=== PATIENT | male | born 1980 | race African-American/Black ===

== ENCOUNTER 2018-02-13 18:39 | Inpatient (IN) | payer OTHER ==
[~2018-02-13 18:39] MED LIST: ISOVUE-370 76%-LOCM 1 ML ONE; Iopamidol 370 76% 50 ML VIAL FS ONE
[2018-02-13] MEDS ORDERED: HYDROcodone/Acetaminophen 5/325 mg Tablet ONE (19:06)
[2018-02-13 19:12] LABS: Hemoglobin 12.6 g/dL (14.0-18.0); Mean Corpuscular HGB CONC 31.2 g/dL (32.0-36.0); Mean Corpuscular Hemoglobin 25.7 pg (27.0-31.0); Mean Corpuscular Volume 82.4 fL (78.0-98.0); RBC Distribution Width 13.2 % (11.5-14.5); Red Blood Cell (RBC) Count 4.91 mill/uL (4.70-6.10); White Blood Cell (WBC) Count 24.5 thou/uL (4.8-10.8)
[2018-02-13 19:19] LABS: INR-International Normal Ratio 2.8; Prothrombin Time 29.1 SEC (12.0-14.7)
[2018-02-13 19:20] LABS: PTT 42.8 SEC (22.9-36.1)
[2018-02-13 19:33] LABS: Bilirubin Moderate (Negative); Blood, Urine Negative (Negative); Clarity CLEAR (Clear); Glucose, Urine (Dipstick) Negative (Negative); Leukocyte Small (Negative); Nitrite Positive (Negative); Protein, Urine (Dipstick) 100 mg/dL (Neg-Trace); Specific Gravity, Urine 1.023 (1.002-1.036)
[2018-02-13 19:35] LABS: Bacteria/HPF None Seen HPF (None Seen); Hyaline Casts/LPF 7-10 HYALINE CAST LPF (0-3 Hyaline); Pathc Cast-AUWi Flag 1.59 (0-2.49); RBC/HPF 0-3 HPF (0-3); Squamous Epithelial 0-3 HPF (0-3)
[2018-02-13 19:38] LABS: ALT (SGPT) 42 U/L (8-55); AST (SGOT) 62 U/L (5-34); Albumin 2.8 g/dL (3.5-5.0); Alkaline Phosphatase 105 U/L (40-150); Anion Gap 14 mmol/L (10-20); BUN (Urea Nitrogen) 33 mg/dL (8.9-20.6); Calc. Creatinine Clearance 0 mL/min (70-130); Carbon Dioxide 23 mmol/L (22-29); Chloride 102 mmol/L (98-107); Estimated GFR-MDRD 49; Globulin 3.8 g/dL (2.4-3.5); Glucose 78 mg/dL (70-105); Protein, Total 6.6 g/dL (6.0-8.3); Sodium 135 mmol/L (136-145)
[2018-02-13 19:40] LABS: Band 28 % (5-11); Hypochromia SLIGHT = 6-15 cells (100X) (0-5/hpf); Lymphocytes 2 % (21-51); MDiff Complete? YES; Mean Platelet Volume 9.5 fL (7.4-10.4); Metamyelocyte 1 % (0-0); Monocytes 6 % (0-10); Neutrophil 63 % (42-75); PLT Morphology Comment Appears Decreased; Platelet Count 123 thou/uL (130-400); Poikilocytosis SLIGHT = 6-15 cells (100X) (0-5/hpf); Polychromasia SLIGHT = 2-3 cells (100X) (0-2/hpf)
[2018-02-13] MEDS ORDERED: cefTRIAXone\\ROCEPHIN 2 GM VIAL ONE (20:47)
[2018-02-13 20:49] LABS: CKMB 1.1 ng/mL (0-6.6)
[2018-02-13] MEDS ORDERED: Lorazepam 2 MG/ML VIAL ONE (22:18)
[2018-02-13] MEDS ORDERED: Fentanyl 100 MCG/2 ML VIAL ONE (22:18)
--- NOTE | 2018-02-13 22:34 | CT ---
CT ABDOMEN AND PELVIS WITH IV AND ENTERIC CONTRAST 02/13/18 PROVIDED CLINICAL HISTORY: Groin pain. FINDINGS: The visualized lung bases are free of significant opacity. The heart is markedly enlarged. There is a heterogeneous enhancement pattern of the liver typically seen in the setting of elevated r ight heart pressures. The solid abdominal organs demonstrate an otherwise unremarkable CT appearance with exception of a left renal cyst with small focus of associated mural calcium. There is a right inguinal hernia containing mildly ectatic small bowel. There is no definite evidence for an associated bowel obstruction though the neck of the inguinal hernia fairly small. There is pr ominent fluid density present within the right scrotal sac as well as involving the scrotal subcutane ous adipose layer. There is no evidence for localized inflammatory fat stranding. There is diffuse fl uid density within the subcutaneous adipose layer and within the intraperitoneal fat. No free air or significant free fluid is seen. The osseous structures demonstrate no concerning osteoblastic or osteolytic lesions. IMPRESSION: 1. Large right inguinal hernia containing mildly ectatic small bowel without evidence for result ant bowel obstruction. Given the amount of surrounding fluid density, correlation for incarceration i s recommended. 2. Other findings as above. POS: STACEY
[2018-02-13] MEDS ORDERED: Furosemide 40 MG/4 ML VIAL ONE (23:02)
[2018-02-14 01:00] LABS: CKMB 1.3 ng/mL (0-6.6)
[2018-02-14] MEDS ORDERED: Furosemide 40 MG/4 ML VIAL ONE (01:44)
[2018-02-14] MEDS ORDERED: Furosemide 40 MG/4 ML VIAL SLOW IVP SCH (01:45)
[2018-02-14] MEDS ORDERED: Ondansetron PF 4 MG/2 ML Vial IVP PRN (01:52)
[2018-02-14] MEDS ORDERED: Ondansetron ODT 4 MG TAB SL PRN (01:52)
[2018-02-14] MEDS ORDERED: Carvedilol 6.25 MG TAB PO SCH (02:00)
[2018-02-14] MEDS: Acetaminophen 325 MG TAB PO PRN ×2 (02:27→10:56)
--- NOTE | 2018-02-14 03:22 | CON ---
DATE OF CONSULTATION: 02/13/2018 CHIEF COMPLAINT: Large right inguinal hernia. HISTORY OF PRESENT ILLNESS: The patient is a 37-year-old black male. He is a prisoner, who was transferred here this evening with a complaint of right scrotal pain. He was felt to potentially have an incarcerated inguinal hernia. On my recommendation, the emergency room physician administered some sedation with Ativan and fentanyl. Unfortunately, this has rendered the patient lethargic to the point that he cannot really communicate with me. The attempted sedation was to facilitate an attempt at reduction of his hernia. He has such severe scrotal enlargement and swelling, but it is difficult if not impossible to palpate an actual hernia within his huge scrotum. It is therefore likely not practical to attempt to reduce this. The patient denies nausea or vomiting, and only endorses scrotal discomfort. He believes it has gotten larger over the past couple of days. Evaluation of this patient is complicated not only by his current sedation and his lack of ability to communicate with this, but also by lack of records. He was transferred from the custodial with an extensive medical history, but very few medical records. I know a few of his diagnoses and the medications he is on currently, but it is difficult to piece all of this together. On top of this, he appears to have extensive medical history with what appears to be severe congestive heart failure. He appears to have had a pulmonary embolism. He is potentially a former alcoholic prior to being incarcerated. He has either a pacemaker or defibrillator. He may have some degree of liver failure. PAST MEDICAL HISTORY: 1. Congestive heart failure. 2. History of pulmonary embolism, potentially in May of 2017. 3. Gout. 4. History of alcoholism. 5. Hypothyroidism. 6. Hypertension. ALLERGIES: PENICILLIN. PAST SURGICAL HISTORY: Unknown other than pacemaker placement (although I am not certain that it is not a defibrillator). MEDICATIONS: Appear to include, 1. Allopurinol. 2. Aspirin. 3. Atorvastatin. 4. Carvedilol. 5. Plavix. 6. Furosemide. 7. Lactulose. 8. Levothyroxine. 9. Lisinopril. 10. Potassium. 11. Coumadin. PERSONAL AND SOCIAL HISTORY: Unable to obtain. REVIEW OF SYSTEMS: Unremarkable. FAMILY HISTORY: Not obtainable. PHYSICAL EXAMINATION: VITAL SIGNS: He is afebrile with a pulse of 81 and blood pressure of about 100/60. GENERAL: He is a black male, who according to the emergency room physician was resting and appeared to be comfortable. He is alert and oriented x3. HEAD, EYES, EARS, NOSE, AND THROAT: Unremarkable. NECK: Supple. LUNGS: Clear to auscultation anteriorly. CARDIAC: Muffled. Diminished heart sounds, but regular rhythm. ABDOMEN: Nondistended, but somewhat protuberant. He had no tenderness to palpation. I was able to obtain appropriate exam while he was awake. Bowel sounds are present, but hypoactive. : He has a huge scrotum. This has extensive edema within it. It is difficult to palpate either testicle due to the extensive scrotal edema. EXTREMITIES: Again, he has extensive edema within his lower extremities. LABORATORY DATA: His INR is 2.8 with a PTT of 42.8 and a PT of 29. CBC reveals white blood cell count of 24.5. I unfortunately do not know what his baseline is. Hemoglobin is 12.6, platelet count is 123, and has 28% bandemia. Chemistry panel reveals elevated creatinine of 1.9. I again have no idea what his baseline is. BUN is 33, bilirubin is elevated at 5.0. Pancreatic enzymes were not checked yet. His beta natriuretic peptide is elevated over 3000. His troponin is minimally elevated at 0.04. Urinalysis reveals positive urine nitrite with a small amount of leukocyte esterase and 7-10 white blood cells with no evidence of bacteria. X-rays, CT scan revealed a large right inguinal hernia. There is no evidence of bowel distention leading into this nor is there any gastric distention. This does not appear to be an obstructive phenomenon. There is extensive anasarca noted throughout all of his soft tissues of his abdominal wall, back, legs, scrotum, etc. ASSESSMENT: The patient appears to be in severe congestive heart failure. It is difficult to discern the role that his hernias play in his acute process. I am uncertain why he has an elevated white blood cell count or an elevated bilirubin or an elevated creatinine and how any of these are related to his baseline conditions. I am uncertain about the extent of his congestive heart failure (whether he has an ejection fraction of 5% or 40%). Since his small bowel does not appear to be obstructed based on the contrast within it, then it is unlikely that this is hemodynamically compromised. However, it potentially could be, but it is difficult to discern acutely. For now, given this variety of abnormalities on presentation, I think it would serve him better to try to get his congestive heart failure under control with diuresis to reverse his anticoagulation and hopefully to get some additional records and/or knowledge regarding his baseline condition before proceeding to surgery. Given the extent of bowel within his hernia, I believe that this right inguinal hernia should be repaired during this admission. Job ID: [id number]
[2018-02-14] MEDS ORDERED: Naloxone HCl 0.4 mg/ml Vial IV SCH (04:30)
--- NOTE | 2018-02-14 04:52 | PDOC.EVN ---
Event Note - Event Note Event Note: [facility] given his evidence of decompensated CHF and his cardiomyopathy. Once there his BP dropped into the 70's systolic. He had some pain meds earlier. Narcan was ordered. Assessed patient and he was still sleepy but easily awakens and has normal mentation. Does not feel any different. After Narcan, BP up to the 80's and MAP 60. He has not voided a great deal in spite of the IV Lasix orders. Don't think he is too dry. Concerned about sepsis. Had ordered Levaquin, but that is just now getting started. Changed the CXR to stat since it will likely not get done soon otherwise. Also asked for bladder scanning. Asked the nurse to call me if the BP does not maintain a MAP of 60 or higher. Patient now reports that he was on hemodialysis last year, but his renal function improved to the point he could go off of it.
[2018-02-14] MEDS ORDERED: Sodium Chloride 0.9% 500 ML IVPB SCH (05:30)
[2018-02-14 05:57] LABS: INR-International Normal Ratio 2.5; Prothrombin Time 27.4 SEC (12.0-14.7)
[2018-02-14 05:59] LABS: Lactic Acid 1.7 mmol/L (0.5-2.2)
[2018-02-14 06:03] LABS: Anion Gap 14 mmol/L (10-20); BUN (Urea Nitrogen) 35 mg/dL (8.9-20.6); Calc. Creatinine Clearance 72 mL/min (70-130); Carbon Dioxide 21 mmol/L (22-29); Chloride 103 mmol/L (98-107); Estimated GFR-MDRD 46; Glucose 76 mg/dL (70-105); Potassium 3.7 mmol/L (3.5-5.1); Sodium 134 mmol/L (136-145)
--- NOTE | 2018-02-14 06:08 | HP ---
CHIEF COMPLAINT: Enlarging hernia. HISTORY OF PRESENT ILLNESS: The patient is a 37-year-old male [facility] inmate, who has a history of prior myocardial infarctions resulting in significant ischemic cardiomyopathy and congestive heart failure requiring a defibrillator placement in 2014. The patient reports that he has had right inguinal hernia since 2016. However, the last couple days, it has substantially increased in size, become significantly more painful and started impacting his ability to empty his bladder and void his bowel. He stated he would start a bowel movement and have to stop and try to empty his bladder, then go back to bowel movement back to empty his bladder. He felt like he might have been developing some fever this morning as well. The patient subsequently presented for evaluation of this. However, in the process , he has also not received any of his usual daily medications. The patient has been experiencing some increasing shortness of breath. He was evaluated in the emergency department after a CT scan confirmed large right inguinal hernia with concern for incarceration. Dr. Tesfaye saw the patient, however, the patient is on warfarin presumably for his heart situation, but it is not exactly clear why he ordered a couple units of FFP. The patient is being admitted to the medical service given his underlying cardiac comorbidities. The patient did receive a dose of Lasix in the emergency department. REVIEW OF SYSTEMS: The patient denies any chest pains or palpitations. He does have the above-mentioned shortness of breath with no cough and feels like he may have some subjective fevers. He has polydipsia. All other systems were reviewed, pertinent positives and negatives were mentioned in the history of present illness. PAST MEDICAL HISTORY: Notable for the above-mentioned history of myocardial infarction with resultant ischemic cardiomyopathy and congestive heart failure. He has hyperlipidemia, gout, hypothyroidism, hypertension. PAST SURGICAL HISTORY: Defibrillator placement. FAMILY HISTORY: Both parents had congestive heart failure. SOCIAL HISTORY: The patient has a history of tobacco abuse, but none now. He has a history of severe alcohol abuse, none now. History of occasional marijuana use, none now. The patient is single. He is full code. His sister, Johnna Solis, would be his surrogate decision maker should that become necessary. ALLERGIES: PENICILLIN. CURRENT MEDICATIONS: 1. Allopurinol 300 mg daily. 2. Aspirin 81 mg daily. 3. Atorvastatin 20 mg q.p.m. 4. Coreg 12.5 mg b.i.d. 5. Plavix 75 mg daily. 6. Lasix 40 mg two q.a.m., one q.p.m. 7. Lactulose 30 mL p.o. daily. 8. Levothyroxine 25 mcg daily. 9. Lisinopril 2.5 mg daily. 10. Potassium 10 mEq p.o. daily. 11. Warfarin 7.5 mg Saturday, Saturday, Saturday and 2.5 mg q.p.m. PHYSICAL EXAMINATION: VITAL SIGNS: BP 118/74, pulse 80, respirations 18, and 98% on room air. GENERAL APPEARANCE: At the time my evaluation, the patient is awake, slightly somnolent. He is tachypneic, but not specifically in any distress. He is not able to speak in full sentences. HEENT: PERRL. No OP lesions. Dry oral mucosa. NECK: Supple and symmetric without lymphadenopathy, JVD, or carotid bruits. HEART: Regular. He has a 2/6 murmur at the apex area. LUNGS: Have scattered fine rales throughout, but fair air exchange. ABDOMEN: Soft, nondistended. Positive bowel sounds. Very minimal tenderness to palpation in the left lower quadrant. EXTREMITIES: Have 2 to 3+ pitting edema of both lower extremities to the level of the knee. : Reveals extremely enlarged scrotum, which is very tender to palpation with some scrotal wall edema. PSYCH: Normal affect and behavior. NEUROLOGIC: The patient has spontaneous movement of his extremities without evidence of focal deficits. LABORATORY DATA: White count 24.5, hemoglobin 12.6, platelets 123, 28% bands, 2 % lymphocytes. INR is 2.8, PTT 42.8. Sodium 135, potassium 4.0, chloride 102, CO2 of 23, BUN 33, creatinine is 1.9, total bilirubin 5.0, AST 62, ALT 42, troponin 0.044, BNP 3033.9, albumin 2.8, lactic acid 1.7. Urinalysis; trace protein, trace ketones, positive nitrites, positive bilirubin, small leukocyte esterase, 7-[address] abdomen and pelvis shows large right inguinal hernia containing mildly ectatic small bowel without evidence for resultant bowel obstruction. However, given the amount of surrounding fluid density, correlation for incarceration was recommended. IMPRESSION AND PLAN: 1. Incarcerated right inguinal hernia. The patient has been evaluated by Surgery and the plan is to perform surgery tomorrow if the patient can be stabilized and his anticoagulation reversed. 2. Congestive heart failure. The patient has a history of severe cardiomyopathy , secondary to ischemia. His ejection fraction is not known and can be assessed if opportunity presents itself prior to surgical intervention, however, presumably is severe. The patient is on aspirin, Plavix, and warfarin. He appears to not have substantial edema on his exam. We will obtain a chest x-ray. Unfortunately, the patient has not received his medications throughout the day of the . We will give him IV Lasix 40 mg x1 now. We will also order his Coreg now. He will need to stay on the beta blockers perioperatively as much as we can make that happen. 3. History of coronary artery disease. We will go and give him an aspirin now I beileve we can hold the Plavix perioperatively. 4. Renal. The patient has significant elevation of his BUN and creatinine. I have no idea what his baseline numbers are, certainly may be secondary to poor perfusion from congestive heart failure. 5. Leukocytosis with left shift. I am going to go and cover him with some antibiotics given that he has also felt some subjective fever. The incarcerated hernia would be the primary source of concern here. 6. Hypertension, need to resume the patient's home medications. It is not clear what time this surgery will happen. Therefore, we will hold off and see if we can get surgery done early and resume his medicines postoperatively, but will give a dose of the Coreg tonight. 7. Hypothyroidism. Very small dose of thyroid medication can be resumed once reasonably appropriate. Job ID: [id number] MTDD
[2018-02-14 06:11] LABS: Band 38 % (5-11); Hemoglobin 11.5 g/dL (14.0-18.0); Lymphocytes 1 % (21-51); MDiff Complete? YES; Mean Corpuscular HGB CONC 31.5 g/dL (32.0-36.0); Mean Corpuscular Hemoglobin 26.1 pg (27.0-31.0); Metamyelocyte 2 % (0-0); Monocytes 2 % (0-10); Neutrophil 57 % (42-75); PLT Morphology Comment Appears Decreased; Platelet Count 106 thou/uL (130-400); RBC Distribution Width 13.2 % (11.5-14.5); Red Blood Cell (RBC) Count 4.41 mill/uL (4.70-6.10); White Blood Cell (WBC) Count 21.9 thou/uL (4.8-10.8)
[2018-02-14] MEDS ORDERED: ADMIXTURE FEE IV SCH (08:15)
[2018-02-14] MEDS ORDERED: Phytonadione 10 MG/ML AMP SLOW IVP SCH ×2 (08:15)
[2018-02-14] MEDS ORDERED: HUMAN PROTHROMBIN COMPLX IV SCH (08:15)
--- NOTE | 2018-02-14 08:44 | RAD ---
RADIOGRAPH CHEST 1 VIEW: Date: 02/14/18 Time: 0505 hours HISTORY: 37-year-old male with congestive heart failure. COMPARISON: None available. FINDINGS: Cardiomegaly. Single lead left subclavian AICD. No pneumothorax. Retrocardiac portion of left lower l obe obscured by the cardiomegaly. Prominent interstitial markings. IMPRESSION: 1. Cardiomegaly. 2. Automatic implantable cardioverter-defibrillator. BAO [] POS: STACEY
[2018-02-14 10:13] LABS: ALT (SGPT) 37 U/L (8-55); AST (SGOT) 56 U/L (5-34); Albumin 2.6 g/dL (3.5-5.0); Alkaline Phosphatase 86 U/L (40-150); Bilirubin, Direct 3.7 mg/dL (0.1-0.3); Bilirubin, Total 6.2 mg/dL (0.2-1.2); Protein, Total 5.7 g/dL (6.0-8.3)
--- NOTE | 2018-02-14 10:21 | PDOC.EVN ---
Event Note - Event Note Event Note: Decompensated heart failure with incarcerated hernia and leukocytosis. Lactic acid wnl, change abx to Vanc and Zosyn. Transfer to ICU for persisting hypotension. DW Dr. Marroquin. Will DW Dr. Krishnan to start pressors and diuresis and optimize patient for surgery. ADDED Vancomycin to Levaquin and will trend WBC. Lactic acid wnl. RR, HR is wnl. Patient in the past was on dialysis and off of it now with recovery of renal function. Cr here is 1.4. will continue to trend creatinine. Also requested metal handcuff restrains to be removed as we need patient to be free of obstructions for various treatments. DR. Umu Latham Hospitalist
--- NOTE | 2018-02-14 10:38 | PRG ---
DATE OF SERVICE: 02/14/2018 SUBJECTIVE: Mr. Solis is on the stroke unit this morning. He was admitted to the hospitalist service overnight. He presented to the emergency room last night with a large scrotal hernia with discomfort. He had been transferred from the skilled nursing with poor medical records and medical history. He clearly had severe congestive heart failure with anasarca. He also had hyperbilirubinemia of unknown etiology (probably related to his heart failure). He was also fully anticoagulated on Coumadin. He was admitted to the floor and apparently not being given any IV fluid. He was hypotensive overnight with systolic pressures ranging from 64 up to 87. I believe he was given some fluid boluses in regard to this. He is currently in the process of being transferred to a higher level of care. Cardiology consultation has been requested. An echocardiogram has been obtained. The patient tells me he believes he has an ejection fraction around 18%. The patient yesterday tolerated oral contrast for CT scan and noted that he had a loose bowel movement sometime in the early hours of this morning, probably related to this contrast scan. Followup abdominal x-ray has been ordered to make sure that there is no obstructive process, which there did not appear to be last night. Additionally, the patient was fully anticoagulated. He was initially treated with 2 units of FFP, but was subsequently being given a reversal dose of Kcentra this morning. The patient is alert, pleasant, and oriented. He is fully cooperative. He tells me he does have some scrotal pain especially with manipulation and initially told me he had abdominal pain, but with examination, he realized he did not have any significant abdominal discomfort. He is thirsty and somewhat hungry. OBJECTIVE: VITAL SIGNS: Today, temperature is 98.3, pulse is 76, and blood pressure is about 80/40 currently. HEAD, EYES, EARS, NOSE, AND THROAT: Unremarkable. NECK: Supple. LUNGS: Clear to auscultation anteriorly. CARDIAC: Regular rate and rhythm. ABDOMEN: Nontender, nondistended. Bowel sounds are hypoactive. EXTREMITIES: Revealed persistent changes consistent with anasarca. LABORATORY DATA: His INR this morning is 2.5 after 2 units of FFP. His CBC reveals hemoglobin has dropped from 12.6 to 11.5 and his white blood cell count has dropped from 24.5 down to 21.9. His platelet count is low at 106 and he has 38% bandemia. His chemistry reveals that his CO2 has dropped from 23 to 21, but his lactate remains stable at 1.7. His creatinine level has gone up slightly from 1.9 to 2.0 (but again we do not know what his baseline creatinine level is). Followup liver function tests were not obtained. ASSESSMENT: The patient has known history of severe congestive heart failure. He has marked anasarca, indicating that this is poorly controlled currently. He has a large hernia down the scrotum, but this does not appear to be an obstructed phenomenon. I suspect this is a large chronic hernia. I am not certain why he has the discomfort. I am also not certain why he has a bandemia. I suspect that his pain and these changes will mandate a repair of this hernia sooner rather than later (probably later today). For now, I think that he still require stabilization given his hypotension. Cardiology evaluation is pending and he is going to be moved to a higher level of care. Consideration is being given to starting pressors to accommodate his hypotension and possible still intravascular hypovolemia. I will discuss him with my associate, Dr. Nuñez, who will be assuming his care this morning. Job ID: [id number]
[2018-02-14] MEDS: Vancomycin HCl 1.5 GM in Sodium Chloride 0.9% 250 ML 300 ML IVPB SCH ×2 (10:57→21:02)
--- NOTE | 2018-02-14 12:08 | RAD ---
ABDOMEN 1 VIEW: Date: 02/14/18 HISTORY: Follow-up. Evaluate for small bowel obstruction. COMPARISON: CT prior day. FINDINGS: There does appear to be ingested oral contrast within the left hemicolon. There are no dilated or air -filled loops of large or small bowel. IMPRESSION: Contrast seen within the left hemicolon, for which there is not likely a high grade small bowel obstr uction. POS: [facility]
--- NOTE | 2018-02-14 12:31 | CON ---
DATE OF CONSULTATION: HISTORY OF PRESENT ILLNESS: He is a 37-year-old inmate from [place]. He was brought to the hospital with right groin pain and swelling. He was found to have incarcerated hernia. Additionally, he has underlying congestive heart failure issues. He became hypotensive this morning, he was brought to the ICU. He has already been seen by General Surgery, contemplating surgery once he stabilizes. Additionally, he has cardiac issues. He is due to see Cardiology. Pulmonary Critical Care has seen the patient while in the ICU. In the ICU, he now has a blood pressure of 96/72, pulse 77, saturations 100%, respirations 24. He appears to be in no acute distress. PAST MEDICAL HISTORY: Congestive heart failure, hypothyroidism, gout, previous pacemaker defibrillator, renal failure. MEDICATIONS: From home includes Coumadin 2 mg, lactulose, potassium, lisinopril 2.5, Synthroid 25, Lasix, Plavix, Coreg 12.5 at rest and 20, aspirin 81, allopurinol. He has diagnoses from the [facility] system includes hypothyroidism, hypertension, alcohol abuse, mental issues, CHF, gout, cardiac arrhythmias, pacemaker, tobacco and alcohol as noted in the chart. REVIEW OF SYSTEMS: Unremarkable. PHYSICAL EXAMINATION: GENERAL: He is awake, alert, responsive. VITAL SIGNS: As noted once again, his oxygen saturation is 100% on 2 L, pulse is 77, blood pressure is 96/73, respirations are 18. CHEST: Decreased breath sounds. No wheezing. CARDIAC: Normal S1 and S2. No gallops. ABDOMEN: No mass. LABORATORY STUDIES: White count 21,000, H and H 11 and 36, platelet count 106. Creatinine is 2.0, BUN is 35, INR is 2.5, total bilirubin is 6.2. IMPRESSION: 1. Incarcerated right inguinal hernia. 2. Hypertension. 3. Renal failure. 4. Probably hepatitis. 5. Hypothyroidism. 6. Congestive heart failure. PLAN: The patient appears to be relatively stable. Await input from Surgery. Blood pressure continues to drop. We will need to start him on pressors and central venous access. Pulmonary Critical Care will follow while in the ICU. TIME SPENT: This is a consultation note, 70 minutes, 50% direct patient care. Job ID: [id number]
[2018-02-14 17:09] LABS: INR-International Normal Ratio 2.3
[2018-02-14] MEDS: Morphine 4 MG/ML VIAL SLOW IVP PRN (20:29)
--- NOTE | 2018-02-14 21:00 | CON ---
DATE OF CONSULTATION: HISTORY OF PRESENT ILLNESS: Sadiq Solis is a 37-year-old black male [place] [facility] inmate, who has a history of prior myocardial infarctions. He states he has had several infarctions and it sounds as if he has had a cardiac catheterization in the past. However, no PTCA or stent placement was performed. He has a single-chamber ICD that was placed in November 2014. He has never had any discharges from his defibrillator. He has had a right inguinal hernia since 2016. This has started to cause him more pain in the area. He was brought to the emergency room. Abdomen and pelvis CT revealed a large right inguinal hernia containing ectatic small bowel without evidence of obstruction. It was felt that this may be incarcerated. Consideration is given to operative repair later today. Mr. Solis denies any recent chest discomfort. He does complain of dyspnea on exertion and peripheral edema. PAST MEDICAL HISTORY: 1. Myocardial infarction. 2. Ischemic cardiomyopathy. 3. Congestive heart failure. 4. Hypertension. 5. Hyperlipidemia. 6. Gout. 7. Hypothyroidism. PAST SURGICAL HISTORY: Single-chamber ICD placement. MEDICATIONS: 1. Allopurinol 300 daily. 2. Aspirin 81 daily. 3. Plavix 75 mg daily. 4. Atorvastatin 20 at bedtime. 5. Carvedilol 12.5 b.i.d. 6. Furosemide 40 mg two q. a.m. and one q. p.m. 7. Lactulose 20 mg daily. 8. Levothyroxine 25 mcg daily. 9. Lisinopril 2.5 daily. 10. KCl 10 mEq daily. 11. Warfarin 7.5 mg on Saturday, Saturday, and Saturday; two tablets on the other days. ALLERGIES: PENICILLIN. SOCIAL HISTORY: Smoked a pack per day, but stopped two years ago. He drank in the past. PAST FAMILY HISTORY: Positive for congestive heart failure, but it does not sound as if he has had significant coronary artery disease. REVIEW OF SYSTEMS: A 12-point review of systems is otherwise unremarkable. PHYSICAL EXAMINATION: VITAL SIGNS: Blood pressure 79/58, pulse of 76, sinus rhythm on the monitor. HEENT: PERRL. NECK: Supple. CHEST: Clear. CARDIAC: S1 and S2 are normal without any S3, S4, or murmurs. ABDOMEN: Normal bowel sounds. EXTREMITIES: Revealed 1 to 2+ pretibial edema. NEUROLOGIC: Grossly intact. SKIN: Warm and dry. LABORATORY DATA: EKG reveals normal sinus rhythm with possible left atrial enlargement, low voltage in the limb leads and nonspecific T-wave changes. White count 21,900, hemoglobin 11.5, hematocrit 36.6, and platelets 106,000. INR 2.8 on admission, 2.5 this morning. He also has received fresh-frozen plasma. Sodium 134, potassium 3.7, chloride 103, carbon dioxide 21, BUN 35, and creatinine 2.01. Troponin I is 0.044. BNP 3033.9. DIAGNOSTIC DATA: Abdominal CT results as noted above. Chest x-ray reveals cardiomegaly with single-chamber ICD. Echocardiogram revealed mild left ventricular enlargement, severe left ventricular dysfunction with ejection fraction of 10% to 15%, moderate right ventricular enlargement, mild left atrial and right atrial enlargement, moderate mitral regurgitation, [id number] tricuspid regurgitation, and mild pulmonic regurgitation. IMPRESSION: 1. Incarcerated right inguinal hernia. 2. Ischemic cardiomyopathy with ejection fraction of 10% to 15%. He has being given fresh-frozen plasma. 3. Hypotension probably due to ischemic bowel with also an elevated white count. 4. Chronic kidney disease. 5. Anticoagulated. 6. Hypertension. 7. Hypercholesterolemia. 8. Hypothyroidism. PLAN: His medications at the present time are being held due to his hypotension. He may need to be started on dopamine for pressure support. Certainly, he is [id number] cardiac risk for , heart failure, or myocardial infarction. However, with incarcerated inguinal hernia, this needs to be repaired. We will follow the patient with you. Job ID: [id number] [facility]
--- NOTE | 2018-02-15 01:47 | PRG ---
DATE OF SERVICE: 02/15/2018 SUBJECTIVE: Sadiq Solis is doing well. His blood pressure stabilized. Dr. Strange has seen and echocardiogram reveals a 10% to 15% cardiac ejection fraction. He is considered at high surgical risks. The patient was on Coumadin on admission and was given Kcentra. The patient states he has had minimal pain and he is hungry. He has not had any nausea or vomiting. On admission, CAT scan of pelvis revealing right inguinal hernia into his scrotum. There was no bowel dilatation. The patient's liver function tests were elevated. He has ischemic cardiomyopathy, this is probably due to hepatic congestion. His BNP is markedly elevated. The patient feels better at this time. His abdomen is soft, nontender, and nondistended. He is hungry, he wants something to drink. We will initiate full liquids tonight. This hernia is probably chronic and he does not need surgical intervention. Surgical intervention carries with a very high risk. The patient states he would like to have his hernia fixed and undertake the surgery even though it would be a threat to his life. Currently, I do not think this is emergently indicated and we will recheck his laboratories tomorrow, following him clinically, initiate a diet and slowly advance, and he probably be transferred back to snf, consider repair of this hernia in the future later time. Job ID: [id number]
[2018-02-15] MEDS: Levothyroxine Sodium 25 MCG TAB PO SCH (05:19)
[2018-02-15] MEDS: Morphine 4 MG/ML VIAL SLOW IVP PRN ×3 (05:19→22:03)
[2018-02-15 05:43] LABS: Prothrombin Time 22.7 SEC (12.0-14.7)
[2018-02-15 05:57] LABS: ALT (SGPT) 31 U/L (8-55); AST (SGOT) 42 U/L (5-34); Albumin 2.9 g/dL (3.5-5.0); Alkaline Phosphatase 92 U/L (40-150); Anion Gap 16 mmol/L (10-20); BUN (Urea Nitrogen) 45 mg/dL (8.9-20.6); Bilirubin, Total 10.6 mg/dL (0.2-1.2); Calc. Creatinine Clearance 71 mL/min (70-130); Calcium 8.6 mg/dL (7.8-10.44); Carbon Dioxide 22 mmol/L (22-29); Chloride 100 mmol/L (98-107); Estimated GFR-MDRD 45; Globulin 3.9 g/dL (2.4-3.5); Glucose 116 mg/dL (70-105); Potassium 3.9 mmol/L (3.5-5.1); Protein, Total 6.8 g/dL (6.0-8.3); Sodium 134 mmol/L (136-145)
[2018-02-15 06:18] LABS: HBCM Index 0.09 S/CO (0-0.79); HBSAg Index 0.23 S/CO (0-0.99); Hep A IgM AB Non-Reactive (NonReactive); Hep A IgM S/CO 0.11 S/CO (0-0.79); Hep B Surf Ag Non-Reactive S/CO (NonReactive); Hep C IgG Ab Non-Reactive (NonReactive); Hep C Index 0.12 S/CO (0-0.79); Hepatitis B Core IgM Abs Non-Reactive (NonReactive)
[2018-02-15 06:49] LABS: Band 40 % (5-11); Eosinophils 1 % (0-10); Hemoglobin 11.6 g/dL (14.0-18.0); Lymphocytes 1 % (21-51); MDiff Complete? YES; Mean Corpuscular HGB CONC 31.5 g/dL (32.0-36.0); Mean Corpuscular Hemoglobin 26.3 pg (27.0-31.0); Mean Corpuscular Volume 83.5 fL (78.0-98.0); Mean Platelet Volume 10.5 fL (7.4-10.4); Monocytes 3 % (0-10); Neutrophil 55 % (42-75); PLT Morphology Comment Appears Decreased; Platelet Count 112 thou/uL (130-400); RBC Distribution Width 13.3 % (11.5-14.5); Red Blood Cell (RBC) Count 4.42 mill/uL (4.70-6.10); White Blood Cell (WBC) Count 20.6 thou/uL (4.8-10.8)
[2018-02-15] MEDS: Carvedilol 25 MG TAB PO SCH ×2 (07:15→17:03)
[2018-02-15] MEDS: Polyethylene Glycol 3350 17 GM Packet PO SCH (08:32)
[2018-02-15] MEDS: Clopidogrel Bisulfate 75 MG TAB PO SCH (08:32)
[2018-02-15] MEDS: Aspirin 81 mg Enteric Coated Tablet PO SCH (08:32)
[2018-02-15] MEDS: Vancomycin HCl 1.5 GM in Sodium Chloride 0.9% 250 ML 300 ML IVPB SCH ×2 (09:27→21:57)
[2018-02-15] MEDS: Furosemide 20 MG TAB PO SCH ×2 (09:27→14:10)
--- NOTE | 2018-02-15 10:30 | PRG ---
DATE OF SERVICE: 02/15/2018 OBJECTIVE: VITAL SIGNS: This morning, his blood pressure is improved 122/80, respirations 25, sats are 93%, afebrile, and pulse 86. GENERAL: He denies any pain or shortness of breath. CHEST: Decreased breath sounds. No wheezing. CARDIAC: Normal S1 and S2. No gallops. ABDOMEN: No masses. LABORATORY DATA: Creatinine is 2.0. His white count 20,000, hemoglobin and hematocrit 11 and 36, and platelet count 112. IMPRESSION: 1. Status post hypertension. 2. Incarcerated right inguinal hernia appears to be chronic. As per the Surgery, I am told no surgical intervention is planned at this stage. 3. Abnormal liver profile. 4. Cardiomyopathy, left pleural effusion. PLAN: Pulmonary morgan, at this stage, he can be transferred out of the ICU to a monitored bed. His ejection fraction is only 15%. Continue supportive care, PT. DISPOSITION: As per Surgery. Job ID: [id number]
--- NOTE | 2018-02-15 11:44 | PDOC.PN ---
- Subjective Encounter Start Date: 02/15/18 Encounter Start Time: 11:41 Patient seen and examined, no new issues or complaints, all questions answered. - Objective Resuscitation Status - Order Detail: 02/14/18 01:43 Resuscitation Status Routine Resuscitation Status: FULL: Full Resuscitation Vital Signs & Weight: Vital Signs (12 hours) Temp Pulse Ox 02/15/18 07:17 96 02/15/18 07:00 98.4 F 02/15/18 04:00 98.4 F 02/15/18 00:00 98.3 F Weight Weight 223 lb 4 oz Most Recent Monitor Data Heart Rate from ECG 93 NIBP 101/69 NIBP BP-Mean 79 Respiration from ECG 21 SpO2 90 I&O: 02/14/18 02/15/18 02/16/18 06:59 06:59 06:59 Intake Total 1400 240 Output Total 1575 200 Balance -175 40 Result Diagrams: 02/15/18 05:06 02/15/18 05:06 Phys Exam - Physical Examination Constitutional: NAD HEENT: PERRLA, moist MMs, sclera anicteric Neck: no nodes, no JVD, supple Respiratory: no wheezing, no rales, no rhonchi Cardiovascular: RRR, no rub 2/6 LUCILA Gastrointestinal: soft, non-tender, no distention Musculoskeletal: pulses present, edema present (1+) Neurological: non-focal, normal sensation Dx/Plan (1) Inguinal hernia Code(s): K40.90 - UNIL INGUINAL HERNIA, W/O OBST OR GANGR, NOT SPCF RECUR Status: Acute (2) Sepsis Code(s): A41.9 - SEPSIS, UNSPECIFIED ORGANISM Status: Acute (3) Systolic congestive heart failure Code(s): I50.20 - UNSPECIFIED SYSTOLIC (CONGESTIVE) HEART FAILURE Status: Acute - Plan * cont current plan with diuretics * cont abx * trial of diet to be started, surgery following, per patient he was evaluated by [facility] on 02/06/2018 to have this hernia repaired, he states he was told he would have a date scheduled for surgery but was never actually told when it would be * at this point in time will monitor patient in IMCU for now, if doing well will likely transition to the floor in AM * DC plans in 24-48hrs if no plans for surgery * case and plan d/w patient at length, he understood and agreed with this plan.
--- NOTE | 2018-02-15 19:18 | PRG ---
DATE OF SERVICE: 02/15/2018 Mr. Solis is feeling okay today. He is tolerating his diet and not having any nausea or vomiting. He is having bowel movements and passing gas. He does continue to complain of pain in his right groin due to his large hernia. His abdomen is somewhat scaphoid and he has a large amount of intestine in his right inguinal hernia. There is a large amount of edema in the scrotum as well, I have asked the nurse to elevate this. Due to severe heart failure, I do not think he is an operative candidate. This would be a large operation and he would be at risk for abdominal compartment syndrome. He might even require release of components to allow return of the bowel to the abdominal cavity. He has seen a surgeon in [facility] for this problem and was going to undergo repair if his outside plant field engineer felt that he was okay to proceed with this. His outside plant field engineer did give approval for the surgery, but the patient's severe heart failure had not really been addressed. I recommended that when he returns to his surgeon in [facility] that he inform them of his admission and the diagnosis of severe heart failure and have our records sent to that facility. If his heart failure improves, he may become an operative candidate, but currently we should just manage the swelling and edema and try to find him an appropriate scrotal support. Job ID: [id number] MTDD
[2018-02-15] MEDS ORDERED: Furosemide 40 MG TAB PO SCH (21:00)
[2018-02-15] MEDS: Atorvastatin Calcium 20 MG TAB PO SCH (21:06)
[2018-02-15 21:30] LABS: Vancomycin, Trough 37.6 ug/mL
[2018-02-16 05:30] LABS: INR-International Normal Ratio 1.8; Prothrombin Time 20.7 SEC (12.0-14.7)
[2018-02-16] MEDS: Levothyroxine Sodium 25 MCG TAB PO SCH (05:42)
[2018-02-16 05:53] LABS: Anion Gap 13 mmol/L (10-20); BUN (Urea Nitrogen) 55 mg/dL (8.9-20.6); Calc. Creatinine Clearance 72 mL/min (70-130); Calcium 8.6 mg/dL (7.8-10.44); Carbon Dioxide 23 mmol/L (22-29); Cardiac Risk 3.3 (Less than 4.5); Chloride 101 mmol/L (98-107); Cholesterol 40 mg/dl (< 200 Desired); Estimated GFR-MDRD 45; Glucose 116 mg/dL (70-105); HDL Cholesterol 12 mg/dL (>60 Neg Risk); LDL Cholesterol, Calculated 16 mg/dL; Potassium 3.5 mmol/L (3.5-5.1); Sodium 133 mmol/L (136-145); Triglycerides 62 mg/dL (Less than 150)
[2018-02-16] MEDS: Morphine 4 MG/ML VIAL SLOW IVP PRN ×3 (06:25→20:59)
[2018-02-16] MEDS: Furosemide 20 MG TAB PO SCH ×2 (08:40→13:08)
[2018-02-16] MEDS: Clopidogrel Bisulfate 75 MG TAB PO SCH (08:40)
[2018-02-16] MEDS: Aspirin 81 mg Enteric Coated Tablet PO SCH (08:40)
[2018-02-16] MEDS: Carvedilol 25 MG TAB PO SCH ×2 (08:40→16:15)
[2018-02-16] MEDS: Polyethylene Glycol 3350 17 GM Packet PO SCH (08:43)
[2018-02-16 12:05] LABS: Creatinine, Urine 90.48 mg/dL (63-166)
--- NOTE | 2018-02-16 12:09 | PRG ---
DATE OF SERVICE: 02/16/2018 SUBJECTIVE: This morning, he is awake, alert, and responsive. He is eating lunch without any problems. OBJECTIVE: VITAL SIGNS: Saturations are 99% on 2 L, respiratory rate 18, temperature 98, pulse 86, and blood pressure 117/66. CHEST: Decreased breath sounds. No wheezing. CARDIAC: Normal S1 and S2. No gallops. ABDOMEN: No masses. LABORATORY DATA: His TSH is borderline 4.9, and creatinine is 2. LABORATORY DATA: Urine is growing enterococcus faecalis sensitive to pretty much most of the antibiotics. IMPRESSION: 1. Incarcerated hernia. I am told Surgery is not going to do any surgery on him. 2. Hypertension, resolved. 3. Renal failure. PLAN: From the Pulmonary standpoint, if no surgery is contemplated, he can probably go back to routine system. Pulmonary/Critical Care will follow at a distance. Call if needed. Job ID: [id number]
--- NOTE | 2018-02-16 12:50 | PDOC.PN ---
- Subjective Encounter Start Date: 02/16/18 Encounter Start Time: 12:48 Patient seen and examined, no new issues or complaints, all questions answered. - Objective Resuscitation Status - Order Detail: 02/14/18 01:43 Resuscitation Status Routine Resuscitation Status: FULL: Full Resuscitation Vital Signs & Weight: Vital Signs (12 hours) Temp Pulse Resp BP Pulse Ox 02/16/18 12:40 98.2 F 78 18 113/56 L 98 02/16/18 07:42 98 F 86 18 117/66 99 02/16/18 03:52 98.2 F 85 20 96/60 100 Weight Weight 229 lb 1 oz Most Recent Monitor Data Heart Rate from ECG 87 NIBP 132/75 NIBP BP-Mean 94 Respiration from ECG 23 SpO2 90 I&O: 02/15/18 02/16/18 02/17/18 06:59 06:59 06:59 Intake Total 1400 790 Output Total 1575 1550 Balance -175 -760 Result Diagrams: 02/15/18 05:06 02/16/18 05:12 Phys Exam - Physical Examination Constitutional: NAD HEENT: PERRLA, moist MMs, sclera anicteric Neck: no nodes, no JVD, supple Respiratory: no wheezing, no rales, no rhonchi Cardiovascular: RRR, no significant murmur, no rub Gastrointestinal: soft, non-tender, no distention, positive bowel sounds inguinal hernia with enlarged scrotum Musculoskeletal: pulses present, edema present (1+) Dx/Plan (1) Inguinal hernia Code(s): K40.90 - UNIL INGUINAL HERNIA, W/O OBST OR GANGR, NOT SPCF RECUR Status: Acute (2) Sepsis Code(s): A41.9 - SEPSIS, UNSPECIFIED ORGANISM Status: Acute (3) Systolic congestive heart failure Code(s): I50.20 - UNSPECIFIED SYSTOLIC (CONGESTIVE) HEART FAILURE Status: Acute - Plan * no plans for surgery this admissino * vanc level at 37 with rising Cr level, renal consulted * will DC vanc for now, labs in AM * DC plans once renal function is improving and Cr trending down * will need to FU with [facility] hematology to obtain clearance for surgery then with [facility] for surgical intervention * case and plan d/w patient at [facility], he understood and agreed with this plan.
--- NOTE | 2018-02-16 14:25 | ULT ---
BILATERAL RENAL ULTRASOUND: Date: 02/16/18 HISTORY: Acute renal failure. FINDINGS: The right kidney measures 10.5 cm in length and the left kidney measures 10.1 cm in length. No hydron ephrosis is seen on this side. There is a 1.0 cm echogenic focus suspicious for mass in the superior pole of the left kidney. The ur inary bladder is unremarkable. IMPRESSION: Probable 1.0 cm echogenic mass in the superior pole of the left kidney. The possibility of angiomyoli katlyn should be considered. Further evaluation with CT scan (with and without IV contrast) would be he lpful. POS: STACEY
[2018-02-16] MEDS: Atorvastatin Calcium 20 MG TAB PO SCH (21:02)
--- NOTE | 2018-02-16 22:17 | CON ---
DATE OF CONSULTATION: TYPE OF CONSULTATION: Nephrology. REASON FOR CONSULTATION: Elevated creatinine. HISTORY OF PRESENT ILLNESS: This 37-year-old gentleman with severe congestive heart failure and a history of being on hemodialysis, presented to the hospital with severe shortness of breath. The patient was noted to have a creatinine of 2. The patient at this time denies any nausea, vomiting, or chest pain. The patient does have bilateral edema. PAST MEDICAL HISTORY: Myocardial infarction, congestive heart failure with EF of 10%, gout, hypothyroidism, history of ICD placement. MEDICATIONS: Home medication list reviewed. Hospital medication list reviewed. ALLERGIES: REVIEWED. REVIEW OF SYSTEMS: Fifteen-point review of systems was performed and negative except for positives noted above. NECK: No swelling or lumps. NOSE: No epistaxis or discharge. EYES: No diplopia or pain. MUSCULOSKELETAL: No joint pain. NEUROPSYCHIATRIC SYSTEMS: No suicidal ideation. No ideation. SKIN: Denies any rash or ulcer. CONSTITUTIONAL: No fever or chills. PHYSICAL EXAMINATION: CONSTITUTIONAL: The patient is awake, alert. VITAL SIGNS: , breathing 16, and blood pressure was 117/66. GENERAL APPEARANCE AND MENTAL STATUS: Fair. HEAD/NECK: Normocephalic. Atraumatic. EYES: EOMI. No deformity. EARS: Clear. No ulcers. NOSE: Intact. No lesions. MOUTH: Clear. No discharge. THROAT: Clear. No exudate. LUNGS: Clear. No crackles. CARDIAC: S1, S2. No rub. ABDOMEN: Benign. Bowel sounds positive. GENITALIA/RECTUM: Squires absent. BACK/EXTREMITIES: Edema 0+. NEUROLOGICAL: Alert and motor intact. LABORATORY DATA: Showing hemoglobin 11.6. Creatinine is 2.0. ASSESSMENT: 1. Chronic kidney disease, stage 3, stable. 2. Hypertension, stable. 3. Anemia, stable. 4. Edema. Continue Lasix at high doses and low-salt diet. Job ID: [id number]
[2018-02-17] MEDS: Morphine 4 MG/ML VIAL SLOW IVP PRN (04:49)
[2018-02-17 05:35] LABS: INR-International Normal Ratio 1.7; Prothrombin Time 20.1 SEC (12.0-14.7)
[2018-02-17 05:47] LABS: Anion Gap 15 mmol/L (10-20); BUN (Urea Nitrogen) 58 mg/dL (8.9-20.6); Calc. Creatinine Clearance 70 mL/min (70-130); Calcium 8.6 mg/dL (7.8-10.44); Carbon Dioxide 20 mmol/L (22-29); Chloride 98 mmol/L (98-107); Estimated GFR-MDRD 40; Glucose 103 mg/dL (70-105); Potassium 4.1 mmol/L (3.5-5.1); Sodium 129 mmol/L (136-145)
[2018-02-17] MEDS: Levothyroxine Sodium 25 MCG TAB PO SCH (05:58)
[2018-02-17] MEDS: Aspirin 81 mg Enteric Coated Tablet PO SCH (09:49)
[2018-02-17] MEDS: Clopidogrel Bisulfate 75 MG TAB PO SCH (09:49)
[2018-02-17] MEDS: Carvedilol 25 MG TAB PO SCH ×2 (09:49→17:07)
[2018-02-17] MEDS: Furosemide 20 MG TAB PO SCH ×2 (09:50→14:33)
[2018-02-17] MEDS: Polyethylene Glycol 3350 17 GM Packet PO SCH ×2 (10:13→20:43)
[2018-02-17] MEDS ORDERED: Metolazone 2.5 MG TAB PO SCH (11:30)
--- NOTE | 2018-02-17 12:06 | PRG ---
DATE OF SERVICE: 02/17/2018 SUBJECTIVE: This is a 37-year-old gentleman, being seen for acute kidney injury as well as congestive heart failure. The patient does complain of generalized swelling. Denies any chest pain. OBJECTIVE: See above. Awake, alert, in no acute distress. VITAL SIGNS: Afebrile; pulse 69; breathing is 16; blood pressure 109/74. GENERAL APPEARANCE AND MENTAL STATUS: Fair. HEAD/NECK: Normocephalic. Atraumatic. EYES: EOMI. No deformity. EARS: Clear. No ulcers. NOSE: Intact. No lesions. MOUTH: Clear. No discharge. THROAT: Clear. No exudate. LUNGS: Clear. No crackles. CARDIAC: S1, S2. No rub. ABDOMEN: Benign. Bowel sounds positive. GENITALIA/RECTUM: Squires absent. BACK/EXTREMITIES: Edema 4+. NEUROLOGICAL: Alert and motor intact. SKIN: LYMPHATICS: LABORATORY DATA: Hemoglobin 11.6. Creatinine 2.0. ASSESSMENT: 1. Acute kidney injury with chronic kidney disease due to cardiorenal syndrome. We would recommend Zaroxolyn. 2. Hypothyroidism, on Synthroid. 3. Edema due to severe cardiomyopathy. 4. Anemia, stable. 5. Medications based on GFR are appropriate. 6. Overall prognosis is poor. I would recommend Palliative Care consultation. Job ID: [id number]
--- NOTE | 2018-02-17 14:16 | PDOC.PN ---
- Subjective Encounter Start Date: 02/17/18 Encounter Start Time: 12:15 Still feels pressure on his chest. Generally edematous. - Objective Resuscitation Status - Order Detail: 02/14/18 01:43 Resuscitation Status Routine Resuscitation Status: FULL: Full Resuscitation Vital Signs & Weight: Vital Signs (12 hours) Temp Pulse Resp BP Pulse Ox 02/17/18 11:27 98 F 66 16 88/54 L 96 02/17/18 07:56 98.2 F 69 18 90/60 97 02/17/18 03:53 97.8 F 104 H 18 109/74 95 02/17/18 02:45 64 97/63 Weight Weight 239 lb 12.8 oz Most Recent Monitor Data Heart Rate from ECG 87 NIBP 132/75 NIBP BP-Mean 94 Respiration from ECG 23 SpO2 90 I&O: 02/16/18 02/17/18 02/18/18 06:59 06:59 06:59 Intake Total 790 800 Output Total 1550 850 Balance -760 -50 Result Diagrams: 02/15/18 05:06 02/17/18 05:20 Phys Exam - Physical Examination Constitutional: NAD Lying supine in bed. Slightly somnolent. Appropriate Respiratory: no wheezing, no rales, no rhonchi, clear to auscultation bilateral Diminished in bases. Cardiovascular: RRR, no significant murmur, no rub Gastrointestinal: soft, non-tender, no distention, positive bowel sounds Diffuse edema. Psychiatric: normal affect, A&O x 3 Dx/Plan (1) Systolic congestive heart failure Code(s): I50.20 - UNSPECIFIED SYSTOLIC (CONGESTIVE) HEART FAILURE Status: Acute Comment: EF 10-15%. (2) Acute on chronic kidney failure Code(s): N17.9 - ACUTE KIDNEY FAILURE, UNSPECIFIED; N18.9 - CHRONIC KIDNEY DISEASE, UNSPECIFIED Status: Acute Comment: Unclear what his baseline renal function is. Probably ATN due to hypotension. (3) Inguinal hernia Code(s): K40.90 - UNIL INGUINAL HERNIA, W/O OBST OR GANGR, NOT SPCF RECUR Status: Acute (4) Sepsis Code(s): A41.9 - SEPSIS, UNSPECIFIED ORGANISM Status: Acute - Plan * Patient has severe cardiomyopathy. Has huge inquinal hernia and dropped his blood pressure soon after admission. Consider sepsis give the leukocytosis. Creatinine has continued to climb. Required some fluid resuscitation for BP and now volume overloaded. Cannot diurese given his recurrent low BP now. Not putting out much urine on his own. Still symptomatic with the volume overload. * Discussed with patient. We do not have good treatment options. He is a high surgical risk given his cardiac, renal and volume situations. He is not a good dialysis candidate and we cannot aggressively diurese him. * Options include Palliative Care at an infirmary setting or trying to get him to [facility] for any other possible treatment options. Discussed with [facility] Managed Care. There is a waiting list for [facility]. We decided to wait til the morning and reassess. If he can be adequately stable, he may be able to go to an infirmary and consider outpatient follow up at [facility]. If not, consider transfer.
--- NOTE | 2018-02-17 16:16 | PRG ---
DATE OF SERVICE: SUBJECTIVE: Mr. Solis is feeling okay today. He has not been eating much. He denies any nausea or abdominal pain, just says that sometimes it takes him a long time to eats. He is passing gas. Vital signs have been okay. He is retaining a lot of fluid. His legs are still very swollen as is his scrotum. He has anasarca of the soft tissues of his abdomen and arms as well. He looks icteric and his urine output has been very dark. His nurse states that he has had very little urine output and I asked her to do a bladder scan. Renal and liver labs are worse, probably due to heart failure. ASSESSMENT: Patient with severe heart failure and long-standing incarcerated hernia with possible loss of domain. He is not a surgical candidate at this time. I am going to sign off for now. Please call me if he develops any acute surgical issues. However, he will be extremely high risk for not surviving surgery. Job ID: [id number] MTDD
[2018-02-17] MEDS: Atorvastatin Calcium 20 MG TAB PO SCH (20:42)
[2018-02-18] MEDS: Levothyroxine Sodium 25 MCG TAB PO SCH (04:27)
[2018-02-18 06:44] LABS: BUN (Urea Nitrogen) 71 mg/dL (8.9-20.6); Calc. Creatinine Clearance 63 mL/min (70-130); Calcium 8.8 mg/dL (7.8-10.44); Carbon Dioxide 15 mmol/L (22-29); Chloride 99 mmol/L (98-107); Estimated GFR-MDRD 36; Glucose 112 mg/dL (70-105); Potassium 5.2 mmol/L (3.5-5.1); Sodium 129 mmol/L (136-145)
[2018-02-18 06:47] LABS: Anion Gap 20 mmol/L (10-20)
[2018-02-18 06:59] LABS: INR-International Normal Ratio 1.7; Prothrombin Time 20.4 SEC (12.0-14.7)
[2018-02-18 08:04] LABS: Hemoglobin 11.5 g/dL (14.0-18.0); Mean Corpuscular HGB CONC 31.6 g/dL (32.0-36.0); Mean Corpuscular Hemoglobin 25.9 pg (27.0-31.0); Mean Corpuscular Volume 82.2 fL (78.0-98.0); Mean Platelet Volume 11.5 fL (7.4-10.4); Platelet Count 121 thou/uL (130-400); RBC Distribution Width 13.5 % (11.5-14.5); Red Blood Cell (RBC) Count 4.44 mill/uL (4.70-6.10); White Blood Cell (WBC) Count 10.4 thou/uL (4.8-10.8)
[2018-02-18] MEDS ORDERED: Furosemide 40 MG/4 ML VIAL SLOW IVP SCH ×2 (08:15→18:00)
[2018-02-18 08:17] LABS: Anion Gap 17 mmol/L (10-20); BUN (Urea Nitrogen) 69 mg/dL (8.9-20.6); Calc. Creatinine Clearance 62 mL/min (70-130); Calcium 8.6 mg/dL (7.8-10.44); Carbon Dioxide 20 mmol/L (22-29); Chloride 96 mmol/L (98-107); Estimated GFR-MDRD 35; Glucose 109 mg/dL (70-105); Potassium 4.4 mmol/L (3.5-5.1); Sodium 129 mmol/L (136-145)
[2018-02-18 09:33] LABS: Band 19 % (5-11); Lymphocytes 11 % (21-51); Monocytes 6 % (0-10); Neutrophil 64 % (42-75); Nucleated RBC 1 % (0)
[2018-02-18 09:34] LABS: MDiff Complete? YES
[2018-02-18] MEDS: Carvedilol 25 MG TAB PO SCH (10:25)
[2018-02-18] MEDS: Clopidogrel Bisulfate 75 MG TAB PO SCH (10:26)
[2018-02-18] MEDS: Aspirin 81 mg Enteric Coated Tablet PO SCH (10:26)
[2018-02-18] MEDS ORDERED: Carvedilol 6.25 MG TAB PO SCH (10:45)
[2018-02-18] MEDS ORDERED: Carvedilol 25 MG TAB PO SCH ×2 (10:45→17:00)
[2018-02-18] MEDS ORDERED: Digoxin 0.5 MG/2 ML AMP SLOW IVP SCH ×3 (10:45→13:15)
--- NOTE | 2018-02-18 11:50 | PRG ---
DATE OF SERVICE: 02/18/2018 SUBJECTIVE: A 37-year-old gentleman being seen for acute kidney injury. The patient denies any nausea, vomiting, or chest pain. OBJECTIVE: CONSTITUTIONAL: The patient is awake and alert. VITAL SIGNS: Afebrile, pulse 68, breathing 16, blood pressure 94/56. GENERAL APPEARANCE AND MENTAL STATUS: Fair. HEAD/NECK: Normocephalic. Atraumatic. EYES: EOMI. No deformity. EARS: Clear. No ulcers. NOSE: Intact. No lesions. MOUTH: Clear. No discharge. THROAT: Clear. No exudate. LUNGS: Clear. No crackles. CARDIAC: S1, S2. No rub. ABDOMEN: Benign. Bowel sounds positive. GENITALIA/RECTUM: Squires absent. BACK/EXTREMITIES: Edema 4+. NEUROLOGICAL: Alert and motor intact. LABORATORY DATA: Creatinine 2.5. ASSESSMENT: 1. Chronic kidney disease stage 3 with acute kidney injury, stable. 2. Hypertension, stable. 3. Hyperkalemia, stable. 4. Medications based on GFR are appropriate. Job ID: [id number]
--- NOTE | 2018-02-18 12:13 | PDOC.PN ---
- Subjective Encounter Start Date: 02/18/18 Encounter Start Time: 09:50 Still has episodes of SOB and chest tightness. - Objective Resuscitation Status - Order Detail: 02/14/18 01:43 Resuscitation Status Routine Resuscitation Status: FULL: Full Resuscitation Vital Signs & Weight: Vital Signs (12 hours) Temp Pulse Resp BP BP Pulse Ox 02/18/18 11:05 92/54 L 02/18/18 10:56 74 02/18/18 07:50 97.9 F 66 20 94/56 L 96 02/18/18 06:01 97.5 F L 67 18 92/58 L 100 02/18/18 01:43 90/60 Weight Weight 240 lb 11.2 oz Most Recent Monitor Data Heart Rate from ECG 87 NIBP 132/75 NIBP BP-Mean 94 Respiration from ECG 23 SpO2 90 I&O: 02/17/18 02/18/18 02/19/18 06:59 06:59 06:59 Intake Total 800 1230 Output Total 850 800 Balance -50 430 Result Diagrams: 02/18/18 06:12 02/18/18 06:12 Phys Exam - Physical Examination Constitutional: NAD Generally sleepy. Easily awakens. Respiratory: no wheezing, no rales, no rhonchi Diminished at bases. Cardiovascular: RRR, no significant murmur, no rub Gastrointestinal: soft, non-tender Slightly distended. 3+ edema - generalized Neurological: non-focal Psychiatric: normal affect, A&O x 3 Dx/Plan (1) Systolic congestive heart failure Code(s): I50.20 - UNSPECIFIED SYSTOLIC (CONGESTIVE) HEART FAILURE Status: Acute Comment: EF 10-15%. (2) Acute on chronic kidney failure Code(s): N17.9 - ACUTE KIDNEY FAILURE, UNSPECIFIED; N18.9 - CHRONIC KIDNEY DISEASE, UNSPECIFIED Status: Acute Comment: Unclear what his baseline renal function is. Probably ATN due to hypotension. (3) Inguinal hernia Code(s): K40.90 - UNIL INGUINAL HERNIA, W/O OBST OR GANGR, NOT SPCF RECUR Status: Acute (4) Sepsis Code(s): A41.9 - SEPSIS, UNSPECIFIED ORGANISM Status: Acute - Plan * Chronic, severe cardiomyopathy. Has been stable. Developed large inguinal hernia and dropped his blood pressure (? sepsis). Subsequent renal failure likely due to ATN. Decreased UOP and increasing creat. Not responding well to diuretics. Substantial edema and weight gain. * Not a dialysis candidate due to severe cardiomyopathy and failure. * Very high risk surgical candidate. * Discussed with Cardiology and Nephrology. Prognosis is extremely poor. * BP is not great, but I will try to be more aggressive with diuresis and fluid restrict. If he does not respond to the diuretics, he will indeed have a very poor prognosis.
[2018-02-18] MEDS: Furosemide 40 MG/4 ML VIAL SLOW IVP SCH (14:10)
[2018-02-18] MEDS: Metolazone 2.5 MG TAB PO SCH (14:11)
[2018-02-18] MEDS: Carvedilol 6.25 MG TAB PO SCH (17:37)
[2018-02-18] MEDS: Polyethylene Glycol 3350 17 GM Packet PO SCH (20:52)
[2018-02-18] MEDS: Atorvastatin Calcium 20 MG TAB PO SCH (20:57)
--- NOTE | 2018-02-18 22:14 | CON ---
DATE OF CONSULTATION: 02/18/2018 REASON FOR CONSULTATION: Possible Squires catheter placement. HISTORY: Mr. Solis is a 37-year-old gentleman who is currently incarcerated, with severe congestive heart failure. He has a longstanding right inguinal hernia. He was brought to the emergency room several days ago for complaints of pain and swelling of the inguinal hernia along with swelling throughout his body. He is in anasarca at this time. He does have a history of difficult Squires catheter placement in the past. I believe this is mainly a result of significant edema of the foreskin preventing adequate visualization of the glans penis. He states that he is having quite difficult time voiding earlier today but now this has improved significantly. He asked to not place a Squires catheter because of the significant improvement in his voiding pattern. His typical complaint is that of the feeling the need to void and very little coming out. He did have a bladder scan for evaluation (he was not a postvoid). There was less than 150 mL seen in his bladder. He denies any dysuria. PAST MEDICAL HISTORY: 1. Congestive heart failure. 2. Pulmonary embolism. 3. Gout. 4. History of alcoholism. 5. Hypothyroidism. 6. Hypertension. 7. Anasarca. ALLERGIES: PENICILLIN. PAST SURGICAL HISTORY: Pacemaker. CURRENT MEDICATIONS: Allopurinol, aspirin, carvedilol, Plavix, Lasix, lactulose, levothyroxine, lisinopril, potassium, and Coumadin. SOCIAL HISTORY: He is incarcerated at this time. Does have a history of alcoholism in the past. REVIEW OF SYSTEMS: RESPIRATORY: Shortness of breath with any exertion. CARDIOVASCULAR: Seems to have rather severe congestive heart failure, although the records are not really clear. GASTROINTESTINAL: Denies chronic constipation or diarrhea. GENITOURINARY: Please see history of present illness. PHYSICAL EXAMINATION: GENERAL: He is awake and alert. He is in no distress at this time. VITAL SIGNS: Most recent vital signs, temperature 97.5, blood pressure 97/63, pulse 71, and O2 saturation 98% on 2 L nasal cannula. HEENT: Normocephalic, atraumatic. NECK: Supple without masses. CHEST: No wheezing noticed. CARDIOVASCULAR: Regular rate and rhythm. ABDOMEN: Soft. He has anasarca particularly from the waist down. Marked enlargement of the scrotum particularly on the right side without any erythema or tenderness. He has significant penile edema preventing visualization of the glans penis. I am unable to retract the foreskin down to demonstrate the glans penis. EXTREMITIES: Lower extremities, severe edema. IMPRESSION: Anasarca with congestive heart failure. He is on diuretics and now that he seems to be responding. His urinary pattern is improving. He has requested that not to place a Squires catheter and because his residual has not been demonstrated to be elevated, I have agreed to avoid catheter placement at this time. RECOMMENDATION: Continue diuresis, Squires catheter if he develops retention. Job ID: [id number]
[2018-02-19] MEDS: Morphine 4 MG/ML VIAL SLOW IVP PRN ×3 (03:11→20:04)
[2018-02-19 05:29] LABS: INR-International Normal Ratio 1.7; Prothrombin Time 20.5 SEC (12.0-14.7)
[2018-02-19 05:42] LABS: Anion Gap 13 mmol/L (10-20); BUN (Urea Nitrogen) 69 mg/dL (8.9-20.6); Calc. Creatinine Clearance 70 mL/min (70-130); Calcium 8.3 mg/dL (7.8-10.44); Carbon Dioxide 26 mmol/L (22-29); Chloride 96 mmol/L (98-107); Estimated GFR-MDRD 41; Glucose 93 mg/dL (70-105); Potassium 3.2 mmol/L (3.5-5.1); Sodium 132 mmol/L (136-145)
[2018-02-19] MEDS: Furosemide 40 MG/4 ML VIAL SLOW IVP SCH ×2 (06:20→14:37)
[2018-02-19] MEDS: Metolazone 2.5 MG TAB PO SCH ×2 (06:21→14:37)
[2018-02-19] MEDS: Levothyroxine Sodium 25 MCG TAB PO SCH (06:24)
[2018-02-19] MEDS: Aspirin 81 mg Enteric Coated Tablet PO SCH (08:11)
[2018-02-19] MEDS: Carvedilol 6.25 MG TAB PO SCH ×2 (08:11→16:41)
[2018-02-19] MEDS: Clopidogrel Bisulfate 75 MG TAB PO SCH (08:12)
[2018-02-19] MEDS: Digoxin 0.125 MG TAB PO SCH (08:12)
[2018-02-19 08:45] LABS: Troponin I 0.014 ng/mL (< 0.028)
[2018-02-19] MEDS: DOBUTamine 500 mg/250 ml 250 ML IVPB SCH (09:50)
[2018-02-19] MEDS ORDERED: Potassium Chloride 20 MEQ TAB PO SCH (11:00)
--- NOTE | 2018-02-19 11:24 | PRG ---
DATE OF SERVICE: 02/19/2018 SUBJECTIVE: A 37-year-old gentleman, being seen for stage chronic kidney disease. The patient denies any nausea, vomiting, or chest pain. OBJECTIVE: CONSTITUTIONAL: The patient is awake and alert. VITAL SIGNS: Afebrile, pulse 75, breathing 16, blood pressure 82/54. GENERAL APPEARANCE AND MENTAL STATUS: Fair. HEAD/NECK: Normocephalic. Atraumatic. EYES: EOMI. No deformity. EARS: Clear. No ulcers. NOSE: Intact. No lesions. MOUTH: Clear. No discharge. THROAT: Clear. No exudate. LUNGS: Clear. No crackles. CARDIAC: S1, S2. No rub. ABDOMEN: Benign. Bowel sounds positive. GENITALIA/RECTUM: Squires absent. BACK/EXTREMITIES: Edema 0+. NEUROLOGICAL: Alert and motor intact. SKIN: LYMPHATICS: LABORATORY DATA: Labs show hemoglobin 11.5. Potassium 3.2. Creatinine 2.2. ASSESSMENT AND PLAN: 1. Chronic kidney disease, stage , stable. 2. stable. 3. Hypokalemia. Recommend 40 mEq potassium. 4. Congestive heart failure. Prognosis is poor. I would recommend palliative care. Job ID: [id number]
[2018-02-19] MEDS: DOPamine 400 MG/D5W 250 ML 250 ML IVPB SCH (11:46)
[2018-02-19] MEDS ORDERED: Furosemide 40 MG/4 ML VIAL SLOW IVP SCH ×2 (12:15→19:00)
--- NOTE | 2018-02-19 13:44 | PDOC.PN ---
- Subjective Encounter Start Date: 02/19/18 Encounter Start Time: 10:00 Subjective: pt up in bed no complains of abdomen pain -: pt gets very sob on exertion. pt had chest pain this am -: pt appeared jaundice - Objective Resuscitation Status - Order Detail: 02/14/18 01:43 Resuscitation Status Routine Resuscitation Status: FULL: Full Resuscitation Vital Signs & Weight: Vital Signs (12 hours) Temp Pulse Pulse Pulse Resp BP BP 02/19/18 12:00 67 63 118/58 L 02/19/18 11:43 97.6 F 70 16 02/19/18 08:12 64 02/19/18 08:11 82/54 L 02/19/18 08:00 02/19/18 07:39 97.8 F 64 16 02/19/18 04:00 98.6 F 63 20 BP BP Pulse Ox 02/19/18 12:00 105/57 L 02/19/18 11:43 106/55 L 96 02/19/18 08:12 02/19/18 08:11 02/19/18 08:00 97 02/19/18 07:39 82/54 L 97 02/19/18 04:00 87/48 L 97 Weight Weight 232 lb 4.8 oz Most Recent Monitor Data Heart Rate from ECG 87 NIBP 132/75 NIBP BP-Mean 94 Respiration from ECG 23 SpO2 90 I&O: 02/18/18 02/19/18 02/20/18 06:59 06:59 06:59 Intake Total 1230 890 Output Total 800 3525 Balance 430 -2635 Result Diagrams: 02/18/18 06:12 02/19/18 05:11 Phys Exam - Physical Examination sclera appeared icteric Neck: no nodes, no JVD, supple, full ROM Respiratory: no wheezing, no rales, no rhonchi, wheezing present, clear to auscultation bilateral Cardiovascular: RRR, no significant murmur, no rub, gallop, irregular Gastrointestinal: soft, non-tender, no distention, positive bowel sounds Musculoskeletal: edema present to bilateral thigh area Dx/Plan (1) Acute on chronic systolic (congestive) heart failure Code(s): I50.23 - ACUTE ON CHRONIC SYSTOLIC (CONGESTIVE) HEART FAILURE Status : Acute (2) Acute on chronic kidney failure Code(s): N17.9 - ACUTE KIDNEY FAILURE, UNSPECIFIED; N18.9 - CHRONIC KIDNEY DISEASE, UNSPECIFIED Status: Acute Comment: Unclear what his baseline renal function is. Probably ATN due to hypotension. (3) Incarcerated inguinal hernia Code(s): K40.30 - UNIL INGUINAL HERNIA, W OBST, W/O GANGR, NOT SPCF RECUR Status: Acute (4) Inguinal hernia Code(s): K40.90 - UNIL INGUINAL HERNIA, W/O OBST OR GANGR, NOT SPCF RECUR Status: Acute - Plan will add lfts to am labs -: pt's bp low unable to given his diuretics. spoke with cardio -: will start him on dobutamine and dopamine for now -: continue lasix if map >65. no plans for surgery as of yet -: pt's urine cx indicated enterococcus on levaquin * . Review of Systems - Review of Systems Respiratory: Shortness of Breath Cardiovascular: chest pain Gastrointestinal: negative: Nausea, Vomiting, Abdominal Pain, Diarrhea, Constipation, Melena, Hematochezia, Other Genitourinary: negative: Dysuria, Frequency, Incontinence, Hematuria, Retention , Other - Medications/Allergies Allergies/Adverse Reactions: Allergies Allergy/AdvReac Type Severity Reaction Status Date / Time Penicillins Allergy Verified 02/14/18 02:42 Medications: Current Medications Albumin Human (Albumin 25%) 25 gm IVPB ONE ONE Stop: 02/19/18 13:36 Allopurinol (Zyloprim) 150 mg PO DAILY [facility] Aspirin (Ecotrin) 81 mg PO DAILY [facility] Last Admin: 02/19/18 08:11 Dose: 81 mg Atorvastatin Calcium (Lipitor) 20 mg PO [facility] Last Admin: 02/18/18 20:57 Dose: 20 mg Atorvastatin Calcium (Lipitor) 20 mg PO [facility] Carvedilol (Coreg) 6.25 mg PO BID-WM [facility] Last Admin: 02/19/18 08:11 Dose: Not Given Clopidogrel Bisulfate (Plavix) 75 mg PO DAILY [facility] Last Admin: 02/19/18 08:12 Dose: 75 mg Digoxin (Lanoxin) 0.125 mg PO QAM [facility] Last Admin: 02/19/18 08:12 Dose: 0.125 mg Furosemide (Lasix) 40 mg SLOW IVP 0600,1400 [facility] Last Admin: 02/19/18 06:20 Dose: Not Given Furosemide (Lasix) 40 mg SLOW IVP NOW [facility] Stop: 02/19/18 14:00 Last Admin: 02/19/18 12:45 Dose: 40 mg Levofloxacin 500 mg/ Device 100 mls @ 100 mls/hr IVPB Q24HR [facility] Last Admin: 02/19/18 03:01 Dose: 100 mls Dobutamine HCl/Dextrose (Dobutamine 500 Mg/250 Ml) 250 mls @ 15.806 mls/hr IVPB INF [facility]; Protocol Last Admin: 02/19/18 09:50 Dose: 250 mls Dopamine HCl/Dextrose (Dopamine/D5w) 250 mls @ 19.757 mls/hr IVPB INF [facility]; Protocol Last Admin: 02/19/18 11:46 Dose: 250 mls Lactulose (Lactulose) 20 gm PO HS [facility] Last Admin: 02/18/18 20:52 Dose: Not Given Levothyroxine Sodium (Synthroid) 25 mcg PO 0600 [facility] Last Admin: 02/19/18 06:24 Dose: 25 mcg Metolazone (Zaroxolyn) 2.5 mg PO 0600,1400 [facility] Last Admin: 02/19/18 06:21 Dose: Not Given Morphine Sulfate (Morphine) 4 mg SLOW IVP Q4H PRN PRN Reason: Pain Last Admin: 02/19/18 12:45 Dose: 4 mg Polyethylene Glycol (Miralax) 17 gm PO HS [facility] Last Admin: 02/18/18 20:52 Dose: Not Given Sodium Chloride (Flush - Normal Saline) 10 ml IVF Q12HR [facility] Last Admin: 02/19/18 08:12 Dose: 10 ml Sodium Chloride (Flush - Normal Saline) 10 ml IVF PRN PRN PRN Reason: Saline Flush
[2018-02-19] MEDS ORDERED: Albumin 25% 25 GM/100 ML BOT IVPB SCH (14:00)
[2018-02-19 16:03] LABS: Anion Gap 14 mmol/L (10-20); BUN (Urea Nitrogen) 59 mg/dL (8.9-20.6); Calc. Creatinine Clearance 77 mL/min (70-130); Calcium 8.9 mg/dL (7.8-10.44); Carbon Dioxide 28 mmol/L (22-29); Chloride 94 mmol/L (98-107); Estimated GFR-MDRD 47; Glucose 102 mg/dL (70-105); Potassium 3.2 mmol/L (3.5-5.1); Sodium 133 mmol/L (136-145)
[2018-02-19 16:04] LABS: ALT (SGPT) 50 U/L (8-55); AST (SGOT) 127 U/L (5-34); Albumin 2.8 g/dL (3.5-5.0); Alkaline Phosphatase 142 U/L (40-150); Bilirubin, Total 14.4 mg/dL (0.2-1.2)
[2018-02-19 16:05] LABS: Bilirubin, Direct Greater than 10.0 mg/dL (0.1-0.3)
[2018-02-19 16:16] LABS: Anisocytosis SLIGHT = 6-15 cells (100X) (0-5/hpf); Band 8 % (5-11); Hypochromia SLIGHT = 6-15 cells (100X) (0-5/hpf); Lymphocytes 8 % (21-51); MDiff Complete? YES; Mean Corpuscular HGB CONC 31.9 g/dL (32.0-36.0); Mean Corpuscular Volume 81.6 fL (78.0-98.0); Mean Platelet Volume 10.5 fL (7.4-10.4); Monocytes 4 % (0-10); Neutrophil 80 % (42-75); PLT Morphology Comment Appears Adequate; Platelet Count 156 thou/uL (130-400); Poikilocytosis SLIGHT = 6-15 cells (100X) (0-5/hpf); RBC Distribution Width 14.1 % (11.5-14.5); Red Blood Cell (RBC) Count 4.63 mill/uL (4.70-6.10); Target Cells SLIGHT = 2-5 cells (100X) (0-1/hpf); White Blood Cell (WBC) Count 12.8 thou/uL (4.8-10.8)
[2018-02-19] MEDS ORDERED: Metolazone 2.5 MG TAB PO SCH (19:00)
[2018-02-19] MEDS: Polyethylene Glycol 3350 17 GM Packet PO SCH (19:58)
[2018-02-19] MEDS ORDERED: Atorvastatin Calcium 20 MG TAB PO SCH (21:00)
[2018-02-20] MEDS: DOPamine 400 MG/D5W 250 ML 250 ML IVPB SCH ×2 (00:43→09:47)
[2018-02-20] MEDS: DOBUTamine 500 mg/250 ml 250 ML IVPB SCH ×2 (00:43→15:01)
[2018-02-20] MEDS: Polyethylene Glycol 3350 17 GM Packet PO SCH ×2 (02:54→20:54)
[2018-02-20] MEDS: Levothyroxine Sodium 25 MCG TAB PO SCH (05:08)
[2018-02-20] MEDS: Metolazone 2.5 MG TAB PO SCH ×2 (05:09→14:27)
[2018-02-20] MEDS: Furosemide 40 MG/4 ML VIAL SLOW IVP SCH ×2 (05:09→14:27)
[2018-02-20 05:37] LABS: INR-International Normal Ratio 1.5; Prothrombin Time 18.6 SEC (12.0-14.7)
[2018-02-20] MEDS: Morphine 4 MG/ML VIAL SLOW IVP PRN ×2 (05:59→11:15)
[2018-02-20 06:01] LABS: Anion Gap 14 mmol/L (10-20); BUN (Urea Nitrogen) 47 mg/dL (8.9-20.6); Calc. Creatinine Clearance 97 mL/min (70-130); Calcium 8.8 mg/dL (7.8-10.44); Carbon Dioxide 30 mmol/L (22-29); Chloride 94 mmol/L (98-107); Estimated GFR-MDRD 61; Glucose 94 mg/dL (70-105); Potassium 3.3 mmol/L (3.5-5.1); Sodium 135 mmol/L (136-145)
--- NOTE | 2018-02-20 07:48 | ULT ---
SONOGRAM RIGHT UPPER QUADRANT: Date: 02/20/18 HISTORY: Elevated bilirubin. Abdominal pain. FINDINGS: Gallbladder is incompletely distended. No stones visible. Common duct is 0.2 cm. Liver unremarkable w ithout focal mass or intrahepatic biliary dilatation. Minimal free fluid in the abdomen and right ple ural space. IMPRESSION: No evidence of gallstones or biliary obstruction. POS: [facility]
[2018-02-20] MEDS: Digoxin 0.125 MG TAB PO SCH (08:18)
[2018-02-20] MEDS: Potassium Chloride 20 MEQ TAB PO SCH ×2 (08:18→16:35)
[2018-02-20] MEDS: Aspirin 81 mg Enteric Coated Tablet PO SCH (08:19)
[2018-02-20] MEDS: Carvedilol 6.25 MG TAB PO SCH ×2 (08:19→16:36)
[2018-02-20] MEDS: Clopidogrel Bisulfate 75 MG TAB PO SCH (08:19)
[2018-02-20] MEDS: Allopurinol 300 MG TAB PO SCH (08:19)
[2018-02-20 10:26] LABS: ALT (SGPT) 43 U/L (8-55); AST (SGOT) 104 U/L (5-34); Albumin 2.4 g/dL (3.5-5.0); Alkaline Phosphatase 152 U/L (40-150); Bilirubin, Direct 8.7 mg/dL (0.1-0.3); Magnesium 1.8 mg/dL (1.6-2.6); Protein, Total 6.7 g/dL (6.0-8.3)
--- NOTE | 2018-02-20 12:08 | PRG ---
DATE OF SERVICE: 02/20/2018 SUBJECTIVE: A 37-year-old gentleman, being seen for acute kidney injury. The patient denied any nausea, vomiting, or chest pain. OBJECTIVE: CONSTITUTIONAL: The patient is awake and alert. VITAL SIGNS: Afebrile. Pulse 57, breathing 16, blood pressure 118/57. GENERAL APPEARANCE AND MENTAL STATUS: Fair. HEAD/NECK: Normocephalic. Atraumatic. EYES: EOMI. No deformity. EARS: Clear. No ulcers. NOSE: Intact. No lesions. MOUTH: Clear. No discharge. THROAT: Clear. No exudate. LUNGS: Clear. No crackles. CARDIAC: S1, S2. No rub. ABDOMEN: Benign. Bowel sounds positive. GENITALIA/RECTUM: Squires absent. BACK/EXTREMITIES: Edema 0+. NEUROLOGICAL: Alert and motor intact. LABORATORY DATA: Show hemoglobin 12. Potassium 3.6. ASSESSMENT AND RECOMMENDATION: 1. Chronic kidney disease stage 3 with acute kidney injury, stable. 2. Hypertension, stable. 3. Anemia, stable. 4. Hyperkalemia, high potassium diet. I will sign off from this patient. Please re-consult as needed. Job ID: [id number]
--- NOTE | 2018-02-20 12:54 | PDOC.PN ---
- Subjective Encounter Start Date: 02/20/18 Encounter Start Time: 10:00 Subjective: pt up in bed feels much better today - Objective Resuscitation Status - Order Detail: 02/14/18 01:43 Resuscitation Status Routine Resuscitation Status: FULL: Full Resuscitation Vital Signs & Weight: Vital Signs (12 hours) Temp Pulse Resp BP Pulse Ox 02/20/18 11:33 97.4 F L 55 L 14 100/57 L 96 02/20/18 08:18 62 02/20/18 08:00 95 02/20/18 07:34 97.7 F 62 16 110/64 95 02/20/18 04:00 98.6 F 57 L 18 118/57 L 93 L Weight Weight 217 lb 14.4 oz Most Recent Monitor Data Heart Rate from ECG 87 NIBP 132/75 NIBP BP-Mean 94 Respiration from ECG 23 SpO2 90 I&O: 02/19/18 02/20/18 02/21/18 06:59 06:59 06:59 Intake Total 890 1987.8 Output Total 8205 6745 [facility]2635 -4777.2 Result Diagrams: 02/19/18 15:35 02/20/18 04:22 Phys Exam - Physical Examination Respiratory: no wheezing, no rales, no rhonchi, wheezing present, clear to auscultation bilateral Cardiovascular: RRR, no significant murmur, no rub, gallop, irregular Gastrointestinal: soft, non-tender, no distention, positive bowel sounds Musculoskeletal: no edema, pulses present, edema present Dx/Plan (1) Acute on chronic systolic (congestive) heart failure Code(s): I50.23 - ACUTE ON CHRONIC SYSTOLIC (CONGESTIVE) HEART FAILURE Status : Acute (2) Acute on chronic kidney failure Code(s): N17.9 - ACUTE KIDNEY FAILURE, UNSPECIFIED; N18.9 - CHRONIC KIDNEY DISEASE, UNSPECIFIED Status: Acute Comment: Unclear what his baseline renal function is. Probably ATN due to hypotension. (3) Incarcerated inguinal hernia Code(s): K40.30 - UNIL INGUINAL HERNIA, W OBST, W/O GANGR, NOT SPCF RECUR Status: Acute (4) Inguinal hernia Code(s): K40.90 - UNIL INGUINAL HERNIA, W/O OBST OR GANGR, NOT SPCF RECUR Status: Acute - Plan pt is diuresing well, will contine meds for now, creatinine improving. -: RUQ ultrasound no acute danilo. will change abx to selina since levaquin -: does not have good coverage for enterococcus. -: replace electrolytes -: will give him one dose of albumin today * . Review of Systems - Review of Systems Cardiovascular: negative: chest pain, palpitations, orthopnea, paroxysmal nocturnal dyspnea, edema, light headedness, other Gastrointestinal: negative: Nausea, Vomiting, Abdominal Pain, Diarrhea, Constipation, Melena, Hematochezia, Other Genitourinary: negative: Dysuria, Frequency, Incontinence, Hematuria, Retention , Other - Medications/Allergies Allergies/Adverse Reactions: Allergies Allergy/AdvReac Type Severity Reaction Status Date / Time Penicillins Allergy Verified 02/14/18 02:42 Medications: Current Medications Albumin Human (Albumin 25%) 25 gm IVPB ONE ONE Stop: 02/20/18 12:52 Allopurinol (Zyloprim) 150 mg PO DAILY [facility] Last Admin: 02/20/18 08:19 Dose: 150 mg Aspirin (Ecotrin) 81 mg PO DAILY [facility] Last Admin: 02/20/18 08:19 Dose: 81 mg Carvedilol (Coreg) 6.25 mg PO BID-[facility] Last Admin: 02/20/18 08:19 Dose: 6.25 mg Clopidogrel Bisulfate (Plavix) 75 mg PO DAILY [facility] Last Admin: 02/20/18 08:19 Dose: 75 mg [facility]) [facility] Last Admin: 02/20/18 08:18 Dose: 0.125 mg Furosemide (Lasix) 40 mg SLOW IVP 0600,1400 [facility] Last Admin: 02/20/18 05:09 Dose: 40 mg Dobutamine HCl/Dextrose (Dobutamine 500 Mg/250 Ml) 250 mls @ 15.806 mls/hr IVPB INF [facility]; Protocol Last Admin: 02/20/18 00:43 Dose: 250 mls Dopamine HCl/Dextrose (Dopamine/D5w) 250 mls @ 19.757 mls/hr IVPB INF [facility]; Protocol Last Admin: 02/20/18 09:47 Dose: 250 mls Meropenem 1 gm/ Sodium (Chloride) 100 mls @ 200 mls/hr IVPB BID [facility] Lactulose (Lactulose) 20 gm PO [facility] Last Admin: 02/19/18 23:17 Dose: 20 gm Levothyroxine Sodium (Synthroid) 25 mcg PO 0600 [facility] Last Admin: 02/20/18 05:08 Dose: Not Given Metolazone (Zaroxolyn) 2.5 mg PO 0600,1400 [facility] Last Admin: 02/20/18 05:09 Dose: Not Given Miscellaneous Medication (Pharmacy To Dose) 1 each IVPB ONE PRN PRN Reason: Pharmacy to dose Morphine Sulfate (Morphine) 4 mg SLOW IVP Q4H PRN PRN Reason: Pain Last Admin: 02/20/18 11:15 Dose: 4 mg Polyethylene Glycol (Miralax) 17 gm PO HS [facility] Last Admin: 02/20/18 02:54 Dose: Not Given Potassium Chloride (K-Dur) 40 meq PO BID-WM [facility] Stop: 02/20/18 23:00 Last Admin: 02/20/18 08:18 Dose: 40 meq Sodium Chloride (Flush - Normal Saline) 10 ml IVF Q12HR [facility] Last Admin: 02/20/18 08:19 Dose: 10 ml Sodium Chloride (Flush - Normal Saline) 10 ml IVF PRN PRN PRN Reason: Saline Flush
[2018-02-20] MEDS ORDERED: Albumin 25% 25 GM/100 ML BOT IVPB SCH (13:00)
[2018-02-20] MEDS: MEROPENEM 1 GM/50 ML 1 GM in Premix Bag 1 BAG IVPB SCH (14:27)
[2018-02-21] MEDS: MEROPENEM 1 GM/50 ML 1 GM in Premix Bag 1 BAG IVPB SCH ×2 (01:11→14:01)
[2018-02-21] MEDS: Morphine 4 MG/ML VIAL SLOW IVP PRN (01:12)
[2018-02-21] MEDS: DOPamine 400 MG/D5W 250 ML 250 ML IVPB SCH (02:22)
[2018-02-21] MEDS: Metolazone 2.5 MG TAB PO SCH ×2 (06:07→14:01)
[2018-02-21] MEDS: Levothyroxine Sodium 25 MCG TAB PO SCH (06:07)
[2018-02-21] MEDS: Furosemide 40 MG/4 ML VIAL SLOW IVP SCH ×2 (06:07→14:00)
[2018-02-21 08:59] LABS: INR-International Normal Ratio 1.4; Prothrombin Time 17.6 SEC (12.0-14.7)
[2018-02-21 09:16] LABS: ALT (SGPT) 38 U/L (8-55); AST (SGOT) 77 U/L (5-34); Albumin 2.5 g/dL (3.5-5.0); Alkaline Phosphatase 157 U/L (40-150); Anion Gap 12 mmol/L (10-20); BUN (Urea Nitrogen) 26 mg/dL (8.9-20.6); Bilirubin, Total 10.1 mg/dL (0.2-1.2); Calc. Creatinine Clearance 115 mL/min (70-130); Calcium 9.2 mg/dL (7.8-10.44); Carbon Dioxide 37 mmol/L (22-29); Chloride 90 mmol/L (98-107); Estimated GFR-MDRD 86; Globulin 4.6 g/dL (2.4-3.5); Glucose 97 mg/dL (70-105); Potassium 3.6 mmol/L (3.5-5.1); Protein, Total 7.1 g/dL (6.0-8.3); Sodium 135 mmol/L (136-145)
[2018-02-21] MEDS: Aspirin 81 mg Enteric Coated Tablet PO SCH (09:22)
[2018-02-21] MEDS: Digoxin 0.125 MG TAB PO SCH (09:22)
[2018-02-21] MEDS: Allopurinol 300 MG TAB PO SCH (09:22)
[2018-02-21] MEDS: Clopidogrel Bisulfate 75 MG TAB PO SCH (09:22)
[2018-02-21] MEDS: Carvedilol 6.25 MG TAB PO SCH ×2 (09:22→17:33)
[2018-02-21] MEDS: DOBUTamine 500 mg/250 ml 250 ML IVPB SCH (09:25)
--- NOTE | 2018-02-21 14:31 | PDOC.PN ---
- Subjective Encounter Start Date: 02/21/18 Encounter Start Time: 10:30 Subjective: pt up in bed feels constipated - Objective Resuscitation Status - Order Detail: 02/14/18 01:43 Resuscitation Status Routine Resuscitation Status: FULL: Full Resuscitation Vital Signs & Weight: Vital Signs (12 hours) Temp Pulse Resp BP Pulse Ox 02/21/18 11:25 97.8 F 66 16 129/69 93 L 02/21/18 09:22 68 02/21/18 08:02 97.8 F 63 16 109/63 96 02/21/18 07:15 96 02/21/18 04:40 98.1 F 65 14 113/58 L 93 L Weight Weight 205 lb 11.2 oz Most Recent Monitor Data Heart Rate from ECG 87 NIBP 132/75 NIBP BP-Mean 94 Respiration from ECG 23 SpO2 90 I&O: 02/20/18 02/21/18 02/22/18 06:59 06:59 06:59 Intake Total 1987.8 1000 800 Output Total 6765 1540 2275 [facility] -4777.2 -1923 -7555 Result Diagrams: 02/19/18 15:35 02/21/18 08:36 Phys Exam - Physical Examination Respiratory: no wheezing, no rales, no rhonchi, wheezing present, clear to auscultation bilateral Cardiovascular: RRR, no significant murmur, no rub, gallop, irregular Gastrointestinal: soft, non-tender, no distention, positive bowel sounds Musculoskeletal: pulses present, edema present scrotum edema present but improved Dx/Plan (1) Acute on chronic systolic (congestive) heart failure Code(s): I50.23 - ACUTE ON CHRONIC SYSTOLIC (CONGESTIVE) HEART FAILURE Status : Acute (2) Acute on chronic kidney failure Code(s): N17.9 - ACUTE KIDNEY FAILURE, UNSPECIFIED; N18.9 - CHRONIC KIDNEY DISEASE, UNSPECIFIED Status: Acute Comment: Unclear what his baseline renal function is. Probably ATN due to hypotension. (3) Incarcerated inguinal hernia Code(s): K40.30 - UNIL INGUINAL HERNIA, W OBST, W/O GANGR, NOT SPCF RECUR Status: Acute (4) Inguinal hernia Code(s): K40.90 - UNIL INGUINAL HERNIA, W/O OBST OR GANGR, NOT SPCF RECUR Status: Acute - Plan will start to wean off dopamine and dobutamine -: will decrease his lasix to daily -: bili improving and renal improving. * . Review of Systems - Review of Systems Cardiovascular: negative: chest pain, palpitations, orthopnea, paroxysmal nocturnal dyspnea, edema, light headedness, other Gastrointestinal: negative: Nausea, Vomiting, Abdominal Pain, Diarrhea, Constipation, Melena, Hematochezia, Other Genitourinary: negative: Dysuria, Frequency, Incontinence, Hematuria, Retention , Other - Medications/Allergies Allergies/Adverse Reactions: Allergies Allergy/AdvReac Type Severity Reaction Status Date / Time Penicillins Allergy Verified 02/14/18 02:42 Medications: Current Medications Allopurinol (Zyloprim) 150 mg PO DAILY [facility] Last Admin: 02/21/18 09:22 Dose: 150 mg Aspirin (Ecotrin) 81 mg PO DAILY [facility] Last Admin: 02/21/18 09:22 Dose: 81 mg Bisacodyl (Dulcolax) 10 mg PO NOW [facility] Stop: 02/21/18 16:45 Carvedilol (Coreg) 6.25 mg PO BID-[facility] Last Admin: 02/21/18 09:22 Dose: 6.25 mg Clopidogrel Bisulfate (Plavix) 75 mg PO DAILY [facility] Last Admin: 02/21/18 09:22 Dose: 75 mg Digoxin (Lanoxin) 0.125 mg PO QAM [facility] Last Admin: 02/21/18 09:22 Dose: 0.125 mg Furosemide (Lasix) 40 mg SLOW IVP DAILY [facility] Dobutamine HCl/Dextrose (Dobutamine 500 Mg/250 Ml) 250 mls @ 15.806 mls/hr IVPB INF [facility]; Protocol Last Admin: 02/21/18 09:25 Dose: 250 mls Dopamine HCl/Dextrose (Dopamine/D5w) 250 mls @ 19.757 mls/hr IVPB INF [facility]; Protocol Last Admin: 02/21/18 02:22 Dose: 250 mls Meropenem 1 gm/ Device 50 mls @ 100 mls/hr IVPB 0200,1400 [facility] Last Admin: 02/21/18 14:01 Dose: 50 mls Lactulose (Lactulose) 20 gm PO HS [facility] Last Admin: 02/20/18 20:54 Dose: 20 gm Levothyroxine Sodium (Synthroid) 25 mcg PO 0600 [facility] Last Admin: 02/21/18 06:07 Dose: 25 mcg Miscellaneous Medication (Pharmacy To Dose) 1 each IVPB PRN PRN PRN Reason: Pharmacy to dose Morphine Sulfate (Morphine) 4 mg SLOW IVP Q4H PRN PRN Reason: Pain Last Admin: 02/21/18 01:12 Dose: 4 mg Polyethylene Glycol (Miralax) 17 gm PO HS [facility] Last Admin: 02/20/18 20:54 Dose: Not Given Sodium Chloride (Flush - Normal Saline) 10 ml IVF Q12HR [facility] Last Admin: 02/21/18 09:26 Dose: Not Given Sodium Chloride (Flush - Normal Saline) 10 ml IVF PRN PRN PRN Reason: Saline Flush
[2018-02-21] MEDS ORDERED: Bisacodyl 5 MG TAB PO SCH (14:45)
[2018-02-21] MEDS ORDERED: Albumin 25% 25 GM/100 ML BOT IVPB SCH (15:00)
--- NOTE | 2018-02-21 15:21 | PRG ---
DATE OF SERVICE: 02/21/2018 SUBJECTIVE: A 37-year-old gentleman, being seen for acute kidney injury. The patient denied any nausea, vomiting, or chest pain. OBJECTIVE: CONSTITUTIONAL: The patient is awake and alert. VITAL SIGNS: Afebrile. Pulse 96, breathing 16, blood pressure 129/69. GENERAL APPEARANCE AND MENTAL STATUS: Fair. HEAD/NECK: Normocephalic. Atraumatic. EYES: EOMI. No deformity. EARS: Clear. No ulcers. NOSE: Intact. No lesions. MOUTH: Clear. No discharge. THROAT: Clear. No exudate. LUNGS: Clear. No crackles. CARDIAC: S1, S2. No rub. ABDOMEN: Benign. Bowel sounds positive. GENITALIA/RECTUM: Squires absent. BACK/EXTREMITIES: Edema 0+. NEUROLOGICAL: Alert and motor intact. LABORATORY DATA: Labs show creatinine 1.1. ASSESSMENT AND RECOMMENDATION: 1. Chronic kidney disease stage 3, stable. 2. Hypertension, stable. 3. Acute kidney injury, resolved. 4. Cardiorenal syndrome, Cardiology. I will sign off from this patient. Please re-consult as needed. Job ID: [id number]
[2018-02-21] MEDS ORDERED: Lidocaine Patch Removal 1 EACH TOP SCH (17:00)
[2018-02-21] MEDS ORDERED: DOBUTamine 500 mg/250 ml 250 ML IVPB SCH (21:12)
[2018-02-21] MEDS ORDERED: DOPamine 400 MG/D5W 250 ML 250 ML IVPB SCH (21:13)
[2018-02-21] MEDS: Polyethylene Glycol 3350 17 GM Packet PO SCH (21:36)
[2018-02-22] MEDS: MEROPENEM 1 GM/50 ML 1 GM in Premix Bag 1 BAG IVPB SCH (02:10)
[2018-02-22 05:56] LABS: INR-International Normal Ratio 1.5; Prothrombin Time 18.2 SEC (12.0-14.7)
[2018-02-22] MEDS: Levothyroxine Sodium 25 MCG TAB PO SCH (06:00)
[2018-02-22] MEDS ORDERED: Furosemide 40 MG/4 ML VIAL SLOW IVP SCH (09:00)
[2018-02-22] MEDS: Aspirin 81 mg Enteric Coated Tablet PO SCH (09:12)
[2018-02-22] MEDS: Carvedilol 6.25 MG TAB PO SCH ×2 (09:12→17:10)
[2018-02-22] MEDS: Lidocaine 5% Patch TD SCH (09:12)
[2018-02-22] MEDS: Clopidogrel Bisulfate 75 MG TAB PO SCH (09:13)
[2018-02-22] MEDS: Allopurinol 300 MG TAB PO SCH (09:13)
[2018-02-22] MEDS: Digoxin 0.125 MG TAB PO SCH (09:13)
[2018-02-22 10:45] LABS: ALT (SGPT) 31 U/L (8-55); AST (SGOT) 68 U/L (5-34); Albumin 2.6 g/dL (3.5-5.0); Alkaline Phosphatase 148 U/L (40-150); BUN (Urea Nitrogen) 19 mg/dL (8.9-20.6); Bilirubin, Total 10.2 mg/dL (0.2-1.2); Calc. Creatinine Clearance 97 mL/min (70-130); Calcium 8.8 mg/dL (7.8-10.44); Estimated GFR-MDRD 75; Globulin 4.5 g/dL (2.4-3.5); Glucose 93 mg/dL (70-105); Protein, Total 7.1 g/dL (6.0-8.3)
[2018-02-22 10:56] LABS: Anion Gap 14 mmol/L (10-20); Carbon Dioxide 34 mmol/L (22-29); Chloride 88 mmol/L (98-107); Potassium 3.4 mmol/L (3.5-5.1); Sodium 133 mmol/L (136-145)
--- NOTE | 2018-02-22 11:23 | PDOC.CTH ---
Cardiology Progress Note - Subjective no complaints currently. Dobutamine and Dopa stopped in the last hour. Back to lower than baseline weight. No CP/SOB. - Objective Vital Signs Temp Pulse Resp BP Pulse Ox 02/22/18 08:45 97 02/22/18 08:05 98.1 F 63 16 99/54 L 97 02/22/18 04:00 97.9 F 63 14 99/56 L 95 Weight 193 lb 8 oz 02/21/18 02/22/18 02/23/18 06:59 06:59 06:59 Intake Total 1000 2316 Output Total 2920 6523 Balance -5343 -5678 - Physical Examination General/Neuro: alert & oriented x3 Neck: no JVD present Lungs: CTA Heart: RRR Abdomen: NT/ND Extremities: other: (+1 RLE edema; trace left) - Telemetry Telemetry Rhythm: SB; NSR - Labs Result Diagrams: 02/22/18 10:14 02/22/18 10:14 Troponin/CKMB CK-MB (CK-2) 1.3 ng/mL (0-6.6) 02/14/18 00:02 Troponin I 0.014 ng/mL (< 0.028) 02/19/18 05:11 - Assessment/Plan 1. Acute on chronic systolic CHF 2. incarcerated hernia - stable 3. s/p single ICD 4. History of PE 2013 Doing well from a CHF standpoint. Good diuresis. Drips stopped. Changed to po lasix. D/W Dr. Cabrera. She will resume lovenox and coumadin and prep for transfer back to [facility]. Patient still mildly hypotensive, but asymptomatic. Parameters for Coreg given to nurse. Pt seen and examined. No new changes.
[2018-02-22 12:01] LABS: #Eosinphils 0.1 thou/uL (0.0-0.7); #Lymphocytes 0.8 thou/uL (1.20-3.40); #Monocytes 0.9 thou/uL (0.11-0.59); #Neutrophils 11.8 thou/uL (1.40-6.50); %Eosinophils 0.9 % (0.0-10.0); %Lymphocytes 6.2 % (21.0-51.0); %Monocytes 6.9 % (0.0-10.0); %Neutrophils 86.1 % (42.0-75.0); Hemoglobin 12.3 g/dL (14.0-18.0); Mean Corpuscular HGB CONC 31.1 g/dL (32.0-36.0); Mean Corpuscular Hemoglobin 25.7 pg (27.0-31.0); Mean Corpuscular Volume 82.5 fL (78.0-98.0); Mean Platelet Volume 10.1 fL (7.4-10.4); Platelet Count 187 thou/uL (130-400); RBC Distribution Width 15.5 % (11.5-14.5); Red Blood Cell (RBC) Count 4.79 mill/uL (4.70-6.10); White Blood Cell (WBC) Count 13.7 thou/uL (4.8-10.8)
[2018-02-22] MEDS ORDERED: Enoxaparin Sodium 100 MG/ML SYRINGE SC SCH (12:45)
--- NOTE | 2018-02-22 12:54 | PDOC.PN ---
- Subjective Encounter Start Date: 02/22/18 Encounter Start Time: 09:00 Subjective: pt up in chair complains of pain to his right chest wall area - Objective Resuscitation Status - Order Detail: 02/14/18 01:43 Resuscitation Status Routine Resuscitation Status: FULL: Full Resuscitation Vital Signs & Weight: Vital Signs (12 hours) Temp Pulse Resp BP Pulse Ox 02/22/18 11:00 98.1 F 59 L 16 96/59 L 97 02/22/18 08:45 97 02/22/18 08:05 98.1 F 63 16 99/54 L 97 02/22/18 04:00 97.9 F 63 14 99/56 L 95 Weight Weight 193 lb 8 oz Most Recent Monitor Data Heart Rate from ECG 87 NIBP 132/75 NIBP BP-Mean 94 Respiration from ECG 23 SpO2 90 I&O: 02/21/18 02/22/18 02/23/18 06:59 06:59 06:59 Intake Total 1000 2316 Output Total 2920 6513 Balance -6685 -5748 Result Diagrams: 02/22/18 10:14 02/22/18 10:14 Phys Exam - Physical Examination Neck: no nodes, no JVD, supple, full ROM Respiratory: no wheezing, no rales, no rhonchi, wheezing present, clear to auscultation bilateral Cardiovascular: RRR, no significant murmur, no rub, gallop, irregular Gastrointestinal: soft, non-tender, no distention, positive bowel sounds Dx/Plan (1) Acute on chronic systolic (congestive) heart failure Code(s): I50.23 - ACUTE ON CHRONIC SYSTOLIC (CONGESTIVE) HEART FAILURE Status : Acute (2) Acute on chronic kidney failure Code(s): N17.9 - ACUTE KIDNEY FAILURE, UNSPECIFIED; N18.9 - CHRONIC KIDNEY DISEASE, UNSPECIFIED Status: Acute Comment: Unclear what his baseline renal function is. Probably ATN due to hypotension. (3) Incarcerated inguinal hernia Code(s): K40.30 - UNIL INGUINAL HERNIA, W OBST, W/O GANGR, NOT SPCF RECUR Status: Acute (4) Inguinal hernia Code(s): K40.90 - UNIL INGUINAL HERNIA, W/O OBST OR GANGR, NOT SPCF RECUR Status: Acute (5) Pulmonary emboli Code(s): I26.99 - OTHER PULMONARY EMBOLISM WITHOUT ACUTE COR PULMONALE Status : Acute - Plan will stop dobutamine drip, will change iv lasix to po -: pt has diuresed well. will also stop abx for now -: replace K -: will start him back on coumadin and bridge with lovonox * . Review of Systems - Review of Systems Respiratory: Pleuritic Pain Cardiovascular: negative: chest pain, palpitations, orthopnea, paroxysmal nocturnal dyspnea, edema, light headedness, other Gastrointestinal: negative: Nausea, Vomiting, Abdominal Pain, Diarrhea, Constipation, Melena, Hematochezia, Other - Medications/Allergies Allergies/Adverse Reactions: Allergies Allergy/AdvReac Type Severity Reaction Status Date / Time Penicillins Allergy Verified 02/14/18 02:42 Medications: Current Medications Albumin Human (Albumin 25%) 25 gm IVPB NOW [facility] Stop: 02/22/18 15:00 Allopurinol (Zyloprim) 150 mg PO DAILY [facility] Last Admin: 02/22/18 09:13 Dose: 150 mg Aspirin (Ecotrin) 81 mg PO DAILY [facility] Last Admin: 02/22/18 09:12 Dose: 81 mg Carvedilol (Coreg) 6.25 mg PO BID-[facility] Last Admin: 02/22/18 09:12 Dose: 6.25 mg Clopidogrel Bisulfate (Plavix) 75 mg PO DAILY [facility] Last Admin: 02/22/18 09:13 Dose: 75 mg [facility]oxin (Lan[facility]) [facility] Admin: 02/22/18 09:13 Dose: 0.125 mg Enoxaparin Sodium (Lovenox) 90 mg SC 0900,2100 [facility] Enoxaparin Sodium (Lovenox) 90 mg SC NOW [facility] Stop: 02/22/18 14:45 Furosemide (Lasix) 40 mg PO DAILY-AC [facility] Dopamine HCl/Dextrose (Dopamine/D5w) 250 mls @ 19.757 mls/hr IVPB INF [facility]; Protocol Stop: 02/22/18 18:00 Lactulose (Lactulose) 20 gm PO [facility] Last Admin: 02/21/18 21:36 Dose: Not Given Levothyroxine Sodium (Synthroid) 25 mcg PO 0600 [facility] Last Admin: 02/22/18 06:00 Dose: 25 mcg Lidocaine (Lidoderm 5% Patch) 1 patch TD DAILY [facility] Last Admin: 02/22/18 09:12 Dose: 1 patch Miscellaneous Medication (Pharmacy To Dose) 1 each IVPB PRN PRN PRN Reason: Pharmacy to dose Miscellaneous Medication (Lidocaine Patch Removal) 1 each TOP ASDIR [facility] Miscellaneous Medication (Pharmacy To Dose) 1 each PO PRN PRN PRN Reason: Pharmacy to dose Polyethylene Glycol (Miralax) 17 gm PO HS [facility] Last Admin: 02/21/18 21:36 Dose: Not Given Potassium Chloride (K-Dur) 40 meq PO BID-WM [facility] Sodium Chloride (Flush - Normal Saline) 10 ml IVF Q12HR [facility] Last Admin: 02/22/18 09:13 Dose: 10 ml Sodium Chloride (Flush - Normal Saline) 10 ml IVF PRN PRN PRN Reason: Saline Flush Warfarin Sodium (Coumadin) 5 mg PO SuTuThSa@1700 [facility] Warfarin Sodium (Coumadin) 7.5 mg PO MoWeFr@1700 [facility]
[2018-02-22] MEDS ORDERED: Potassium Chloride 20 MEQ TAB PO SCH (13:00)
[2018-02-22] MEDS ORDERED: Albumin 25% 25 GM/100 ML BOT IVPB SCH (13:00)
[2018-02-22] MEDS: Warfarin Sodium 5 MG TAB PO SCH (17:10)
[2018-02-22] MEDS: Potassium Chloride 20 MEQ TAB PO SCH (17:10)
--- NOTE | 2018-02-22 17:16 | EKG ---
Test Reason : Blood Pressure : / mmHG Vent. Rate : 084 BPM Atrial Rate : 084 BPM P-R Int : 164 ms QRS Dur : 088 ms QT Int : 396 ms P-R-T Axes : 081 067 133 degrees QTc Int : 467 ms Normal sinus rhythm Possible Left atrial enlargement Nonspecific T wave abnormality Prolonged QT Abnormal ECG Confirmed by CHRISTA FRY ([id number]), order editor JEANNETTE ANGULO ([id number]) on 02/22/2018 5:15:59 PM Referred By: Confirmed By:CHRISTA FRY
[2018-02-22] MEDS: Enoxaparin Sodium 100 MG/ML SYRINGE SC SCH (20:31)
[2018-02-22] MEDS: Polyethylene Glycol 3350 17 GM Packet PO SCH (22:52)
[2018-02-22 23:08] LABS: Hemoglobin 11.9 g/dL (14.0-18.0); Platelet Count 171 thou/uL (130-400)
[2018-02-23] MEDS: Levothyroxine Sodium 25 MCG TAB PO SCH (05:51)
[2018-02-23 06:00] LABS: INR-International Normal Ratio 1.4; Prothrombin Time 17.4 SEC (12.0-14.7)
[2018-02-23] MEDS: Potassium Chloride 20 MEQ TAB PO SCH ×2 (08:32→18:05)
[2018-02-23] MEDS: Carvedilol 6.25 MG TAB PO SCH ×2 (08:32→18:04)
[2018-02-23] MEDS: Furosemide 40 MG TAB PO SCH (08:32)
[2018-02-23] MEDS: Aspirin 81 mg Enteric Coated Tablet PO SCH (08:33)
[2018-02-23] MEDS: Digoxin 0.125 MG TAB PO SCH (08:33)
[2018-02-23] MEDS: Allopurinol 300 MG TAB PO SCH (08:33)
[2018-02-23] MEDS: Enoxaparin Sodium 100 MG/ML SYRINGE SC SCH ×2 (08:33→21:15)
[2018-02-23] MEDS: Clopidogrel Bisulfate 75 MG TAB PO SCH (08:33)
[2018-02-23] MEDS: Lidocaine 5% Patch TD SCH (08:34)
[2018-02-23] MEDS ORDERED: Lisinopril 2.5 MG TAB PO SCH ×2 (10:00→10:30)
--- NOTE | 2018-02-23 10:14 | PDOC.CTH ---
Cardiology Progress Note - Subjective No complaints today. Feeling ok. No pain. No SOB/WOODS. Good output. - Objective Vital Signs Temp Pulse Resp BP BP Pulse Ox 02/23/18 08:33 67 02/23/18 08:32 104/63 02/23/18 08:25 97.9 F 67 16 104/63 99 02/23/18 03:06 98.4 F 66 16 95/51 L 100 Weight 186 lb 6.4 oz 02/22/18 02/23/18 02/24/18 06:59 06:59 06:59 Intake Total 2316 390 240 Output Total 6566 700 Balance -9029 -310 240 - Physical Examination General/Neuro: alert & oriented x3 Neck: no JVD present Lungs: CTA Heart: RRR Abdomen: NT/ND Extremities: other: (Trace bilateral SID) - Labs Result Diagrams: 02/22/18 22:52 02/23/18 10:15 Troponin/CKMB CK-MB (CK-2) 1.3 ng/mL (0-6.6) 02/14/18 00:02 Troponin I 0.014 ng/mL (< 0.028) 02/19/18 05:11 - Assessment/Plan 1. Acute on chronic systolic CHF 2. incarcerated hernia - stable 3. s/p single ICD 4. History of PE 2014 Stable. Add lisinopril at low dosage and monitor BP. INR subtherapeutic. Continue lovenox. Discharge planning. Pt seen and examined. Pt previously on eliquis prior to incarceration and was dc and placed on coumadin for previous PE. Pt not opposed to restarting. For disposition, I would recommend transitioning to eliquis and can be managed by the intermediate system. He appears euvolemic today. Ok for dc when ok with primary team. I will sign off. Ok to dc tele
[2018-02-23 10:44] LABS: ALT (SGPT) 27 U/L (8-55); AST (SGOT) 55 U/L (5-34); Albumin 2.3 g/dL (3.5-5.0); Alkaline Phosphatase 132 U/L (40-150); Anion Gap 13 mmol/L (10-20); BUN (Urea Nitrogen) 15 mg/dL (8.9-20.6); Bilirubin, Total 7.9 mg/dL (0.2-1.2); Calc. Creatinine Clearance 126 mL/min (70-130); Calcium 8.7 mg/dL (7.8-10.44); Carbon Dioxide 33 mmol/L (22-29); Chloride 93 mmol/L (98-107); Estimated GFR-MDRD Greater than 90; Globulin 4.6 g/dL (2.4-3.5); Glucose 99 mg/dL (70-105); Potassium 3.6 mmol/L (3.5-5.1); Protein, Total 6.9 g/dL (6.0-8.3); Sodium 135 mmol/L (136-145)
--- NOTE | 2018-02-23 14:23 | PDOC.PN ---
- Subjective Encounter Start Date: 02/23/18 Encounter Start Time: 10:00 Subjective: pt up in bed no complains - Objective Resuscitation Status - Order Detail: 02/14/18 01:43 Resuscitation Status Routine Resuscitation Status: FULL: Full Resuscitation Vital Signs & Weight: Vital Signs (12 hours) Temp Pulse Resp BP BP Pulse Ox 02/23/18 12:00 65 101/61 02/23/18 11:55 98.4 F 65 16 101/61 97 02/23/18 08:33 67 02/23/18 08:32 104/63 02/23/18 08:25 97.9 F 67 16 104/63 99 02/23/18 03:06 98.4 F 66 16 95/51 L 100 Weight Weight 186 lb 6.4 oz Most Recent Monitor Data Heart Rate from ECG 87 NIBP 132/75 NIBP BP-Mean 94 Respiration from ECG 23 SpO2 90 I&O: 02/22/18 02/23/18 02/24/18 06:59 06:59 06:59 Intake Total 2314 667 480 Output Total 6521 700 Balance -4259 -310 480 Result Diagrams: 02/22/18 22:52 02/23/18 10:15 Phys Exam - Physical Examination Neck: no nodes, no JVD, supple, full ROM Respiratory: no wheezing, no rales, no rhonchi, wheezing present, clear to auscultation bilateral Cardiovascular: RRR, no significant murmur, no rub, gallop, irregular Dx/Plan (1) Acute on chronic systolic (congestive) heart failure Code(s): I50.23 - ACUTE ON CHRONIC SYSTOLIC (CONGESTIVE) HEART FAILURE Status : Acute (2) Acute on chronic kidney failure Code(s): N17.9 - ACUTE KIDNEY FAILURE, UNSPECIFIED; N18.9 - CHRONIC KIDNEY DISEASE, UNSPECIFIED Status: Acute Comment: Unclear what his baseline renal function is. Probably ATN due to hypotension. (3) Incarcerated inguinal hernia Code(s): K40.30 - UNIL INGUINAL HERNIA, W OBST, W/O GANGR, NOT SPCF RECUR Status: Acute (4) Inguinal hernia Code(s): K40.90 - UNIL INGUINAL HERNIA, W/O OBST OR GANGR, NOT SPCF RECUR Status: Acute (5) Pulmonary emboli Code(s): I26.99 - OTHER PULMONARY EMBOLISM WITHOUT ACUTE COR PULMONALE Status : Acute - Plan will conitnue lovonox and coumadin -: lasix changed to po -: pt on kali/bb -: possible discharge in am * . Review of Systems - Review of Systems Respiratory: negative: Cough, Dry, Shortness of Breath, Hemoptysis, SOB with Excertion, Pleuritic Pain, Sputum, Wheezing Cardiovascular: negative: chest pain, palpitations, orthopnea, paroxysmal nocturnal dyspnea, edema, light headedness, other Gastrointestinal: negative: Nausea, Vomiting, Abdominal Pain, Diarrhea, Constipation, Melena, Hematochezia, Other - Medications/Allergies Allergies/Adverse Reactions: Allergies Allergy/AdvReac Type Severity Reaction Status Date / Time Penicillins Allergy Verified 02/14/18 02:42 Medications: Current Medications Allopurinol (Zyloprim) 150 mg PO DAILY [facility] Last Admin: 02/23/18 08:33 Dose: 150 mg Aspirin (Ecotrin) 81 mg PO DAILY [facility] Last Admin: 02/23/18 08:33 Dose: 81 mg Carvedilol (Coreg) 6.25 mg PO BID-WM [facility] Last Admin: 02/23/18 08:32 Dose: 6.25 mg Clopidogrel Bisulfate (Plavix) 75 mg PO DAILY [facility] Last Admin: 02/23/18 08:33 Dose: 75 mg Digoxin (Lanoxin) 0.125 mg PO QAM [facility] Last Admin: 02/23/18 08:33 Dose: 0.125 mg Enoxaparin Sodium (Lovenox) 90 mg SC 0900,2100 [facility] Last Admin: 02/23/18 08:33 Dose: 90 mg Furosemide (Lasix) 40 mg PO DAILY-AC [facility] Last Admin: 02/23/18 08:32 Dose: 40 mg Lactulose (Lactulose) 20 gm PO HS [facility] Last Admin: 02/22/18 22:52 Dose: Not Given Levothyroxine Sodium (Synthroid) 25 mcg PO 0600 [facility] Last Admin: 02/23/18 05:51 Dose: 25 mcg Lidocaine (Lidoderm 5% Patch) 1 patch TD DAILY [facility] Last Admin: 02/23/18 08:34 Dose: 1 patch Lisinopril (Zestril) 2.5 mg PO DAILY [facility] Miscellaneous Medication (Pharmacy To Dose) 1 each IVPB PRN PRN PRN Reason: Pharmacy to dose Miscellaneous Medication (Lidocaine Patch Removal) 1 each TOP ASDIR [facility] Miscellaneous Medication (Pharmacy To Dose) 1 each PO PRN PRN PRN Reason: Pharmacy to dose Polyethylene Glycol (Miralax) 17 gm PO HS [facility] Last Admin: 02/22/18 22:52 Dose: Not Given Potassium Chloride (K-Dur) 40 meq PO BID-WM [facility] Last Admin: 02/23/18 08:32 Dose: 40 meq Sodium Chloride (Flush - Normal Saline) 10 ml IVF Q12HR [facility] Last Admin: 02/23/18 08:34 Dose: 10 ml Sodium Chloride (Flush - Normal Saline) 10 ml IVF PRN PRN PRN Reason: Saline Flush Warfarin Sodium (Coumadin) 5 mg PO SuTuThSa@1700 [facility] Last Admin: 02/22/18 17:10 Dose: 5 mg Warfarin Sodium (Coumadin) 7.5 mg PO MoWeFr@1700 [facility]
[2018-02-23] MEDS: Warfarin Sodium 5 MG TAB PO SCH (18:05)
[2018-02-24] MEDS: Polyethylene Glycol 3350 17 GM Packet PO SCH ×2 (00:26→20:46)
[2018-02-24] MEDS: Levothyroxine Sodium 25 MCG TAB PO SCH (05:21)
[2018-02-24 05:48] LABS: INR-International Normal Ratio 1.3; Prothrombin Time 16.2 SEC (12.0-14.7)
[2018-02-24 06:12] LABS: ALT (SGPT) 26 U/L (8-55); AST (SGOT) 51 U/L (5-34); Albumin 2.6 g/dL (3.5-5.0); Alkaline Phosphatase 141 U/L (40-150); BUN (Urea Nitrogen) 15 mg/dL (8.9-20.6); Bilirubin, Total 6.8 mg/dL (0.2-1.2); Calc. Creatinine Clearance 131 mL/min (70-130); Calcium 8.2 mg/dL (7.8-10.44); Carbon Dioxide 27 mmol/L (22-29); Chloride 98 mmol/L (98-107); Estimated GFR-MDRD Greater than 90; Globulin 4.1 g/dL (2.4-3.5); Glucose 86 mg/dL (70-105); Potassium 4.3 mmol/L (3.5-5.1); Protein, Total 6.7 g/dL (6.0-8.3); Sodium 133 mmol/L (136-145)
[2018-02-24 06:13] LABS: Anion Gap 12 mmol/L (10-20)
[2018-02-24] MEDS: Potassium Chloride 10 MEQ TAB PO SCH ×2 (08:11→16:35)
[2018-02-24] MEDS: Digoxin 0.125 MG TAB PO SCH (08:12)
[2018-02-24] MEDS: Aspirin 81 mg Enteric Coated Tablet PO SCH (08:12)
[2018-02-24] MEDS: Lisinopril 2.5 MG TAB PO SCH (08:12)
[2018-02-24] MEDS: Carvedilol 6.25 MG TAB PO SCH ×2 (08:12→16:35)
[2018-02-24] MEDS: Clopidogrel Bisulfate 75 MG TAB PO SCH (08:12)
[2018-02-24] MEDS: Allopurinol 300 MG TAB PO SCH (08:12)
[2018-02-24] MEDS: Furosemide 40 MG TAB PO SCH (08:12)
[2018-02-24] MEDS: Lidocaine 5% Patch TD SCH (08:14)
[2018-02-24] MEDS: Enoxaparin Sodium 100 MG/ML SYRINGE SC SCH ×2 (09:00→20:47)
[2018-02-24 12:09] VITALS: BMI 29.6
[2018-02-24] MEDS ORDERED: Warfarin Sodium 7.5 MG TAB PO SCH ×3 (17:00)
[2018-02-24] MEDS ORDERED: Warfarin Sodium 10 MG TAB PO SCH (17:00)
--- NOTE | 2018-02-24 20:46 | PDOC.PN ---
- Subjective Encounter Start Date: 02/24/18 Encounter Start Time: 10:15 Subjective: pt up in bed no complains - Objective Resuscitation Status - Order Detail: 02/14/18 01:43 Resuscitation Status Routine Resuscitation Status: FULL: Full Resuscitation Vital Signs & Weight: Vital Signs (12 hours) Temp Pulse Resp BP Pulse Ox 02/24/18 19:45 98.0 F 69 18 86/50 L 100 02/24/18 15:54 98.3 F 66 18 91/54 L 99 02/24/18 11:52 98.0 F 60 18 96/51 L 97 Weight Admit Weight 224 lb 3.2 oz Weight 183 lb 6.4 oz Most Recent Monitor Data Heart Rate from ECG 87 NIBP 132/75 NIBP BP-Mean 94 Respiration from ECG 23 SpO2 90 I&O: 02/23/18 02/24/18 02/25/18 06:59 06:59 06:59 Intake Total 390 1200 900 Output Total 700 1600 1000 Balance -310 -400 -100 Result Diagrams: 02/22/18 22:52 02/24/18 05:27 Phys Exam - Physical Examination Neck: no nodes, no JVD, supple, full ROM Respiratory: no wheezing, no rales, no rhonchi, wheezing present, clear to auscultation bilateral Cardiovascular: RRR, no significant murmur, no rub, gallop, irregular Gastrointestinal: soft, non-tender, no distention, positive bowel sounds Dx/Plan (1) Acute on chronic systolic (congestive) heart failure Code(s): I50.23 - ACUTE ON CHRONIC SYSTOLIC (CONGESTIVE) HEART FAILURE Status : Acute (2) Acute on chronic kidney failure Code(s): N17.9 - ACUTE KIDNEY FAILURE, UNSPECIFIED; N18.9 - CHRONIC KIDNEY DISEASE, UNSPECIFIED Status: Acute Comment: Unclear what his baseline renal function is. Probably ATN due to hypotension. (3) Incarcerated inguinal hernia Code(s): K40.30 - UNIL INGUINAL HERNIA, W OBST, W/O GANGR, NOT SPCF RECUR Status: Acute (4) Inguinal hernia Code(s): K40.90 - UNIL INGUINAL HERNIA, W/O OBST OR GANGR, NOT SPCF RECUR Status: Acute (5) Pulmonary emboli Code(s): I26.99 - OTHER PULMONARY EMBOLISM WITHOUT ACUTE COR PULMONALE Status : Acute - Plan pt now euvolemic -: continue current tx -: pt on lovonox bridge to coumadin -: unable to discharge pt since [facility] does not have lovonox -: pt has hx of pulmonary emboli * . Review of Systems - Review of Systems Respiratory: negative: Cough, Dry, Shortness of Breath, Hemoptysis, SOB with Excertion, Pleuritic Pain, Sputum, Wheezing Cardiovascular: negative: chest pain, palpitations, orthopnea, paroxysmal nocturnal dyspnea, edema, light headedness, other Gastrointestinal: negative: Nausea, Vomiting, Abdominal Pain, Diarrhea, Constipation, Melena, Hematochezia, Other Genitourinary: negative: Dysuria, Frequency, Incontinence, Hematuria, Retention , Other - Medications/Allergies Allergies/Adverse Reactions: Allergies Allergy/AdvReac Type Severity Reaction Status Date / Time Penicillins Allergy Verified 02/14/18 02:42 Medications: Current Medications Allopurinol (Zyloprim) 150 mg PO DAILY [facility] Last Admin: 02/24/18 08:12 Dose: 150 mg Aspirin (Ecotrin) 81 mg PO DAILY [facility] Last Admin: 02/24/18 08:12 Dose: 81 mg Carvedilol (Coreg) 6.25 mg PO BID-WM [facility] Last Admin: 02/24/18 16:35 Dose: 6.25 mg Clopidogrel Bisulfate (Plavix) 75 mg PO DAILY [facility] Last Admin: 02/24/18 08:12 Dose: 75 mg Digoxin (Lanoxin) 0.125 mg PO QAM [facility] Last Admin: 02/24/18 08:12 Dose: 0.125 mg Enoxaparin Sodium (Lovenox) 90 mg SC 0900,2100 [facility] Last Admin: 02/24/18 09:00 Dose: 90 mg Furosemide (Lasix) 40 mg PO DAILY-AC [facility] Last Admin: 02/24/18 08:12 Dose: 40 mg Lactulose (Lactulose) 20 gm PO HS [facility] Last Admin: 02/24/18 00:26 Dose: Not Given Levothyroxine Sodium (Synthroid) 25 mcg PO 0600 [facility] Last Admin: 02/24/18 05:21 Dose: 25 mcg Lidocaine (Lidoderm 5% Patch) 1 patch TD DAILY [facility] Last Admin: 02/24/18 08:14 Dose: 1 patch Lisinopril (Zestril) 2.5 mg PO DAILY [facility] Last Admin: 02/24/18 08:12 Dose: 2.5 mg Miscellaneous Medication (Lidocaine Patch Removal) 1 each TOP ASDIR [facility] Miscellaneous Medication (Pharmacy To Dose) 1 each PO PRN PRN PRN Reason: Pharmacy to dose Polyethylene Glycol (Miralax) 17 gm PO HS [facility] Last Admin: 02/24/18 00:26 Dose: Not Given Potassium Chloride (Klor-Con 10) 40 meq PO BID-WM [facility] Last Admin: 02/24/18 16:35 Dose: 40 meq Sodium Chloride (Flush - Normal Saline) 10 ml IVF Q12HR [facility] Last Admin: 02/24/18 08:14 Dose: 10 ml Sodium Chloride (Flush - Normal Saline) 10 ml IVF PRN PRN PRN Reason: Saline Flush Warfarin Sodium (Coumadin) 10 mg PO 1700 [facility] Last Admin: 02/24/18 16:35 Dose: 10 mg
[2018-02-24 23:03] LABS: Platelet Count 171 thou/uL (130-400)
[2018-02-24 23:23] LABS: Calc. Creatinine Clearance 138 mL/min (70-130); Estimated GFR-MDRD Greater than 90
[2018-02-25] MEDS: Levothyroxine Sodium 25 MCG TAB PO SCH (05:43)
[2018-02-25 06:26] LABS: INR-International Normal Ratio 1.3; Prothrombin Time 16.4 SEC (12.0-14.7)
[2018-02-25] MEDS: Enoxaparin Sodium 100 MG/ML SYRINGE SC SCH (09:05)
[2018-02-25] MEDS: Carvedilol 6.25 MG TAB PO SCH ×2 (09:06→16:50)
[2018-02-25] MEDS: Aspirin 81 mg Enteric Coated Tablet PO SCH (09:07)
[2018-02-25] MEDS: Allopurinol 300 MG TAB PO SCH (09:07)
[2018-02-25] MEDS: Potassium Chloride 10 MEQ TAB PO SCH ×2 (09:08→16:50)
[2018-02-25] MEDS: Digoxin 0.125 MG TAB PO SCH (09:08)
[2018-02-25] MEDS: Clopidogrel Bisulfate 75 MG TAB PO SCH (09:09)
[2018-02-25] MEDS: Lisinopril 2.5 MG TAB PO SCH (09:09)
[2018-02-25] MEDS: Furosemide 40 MG TAB PO SCH (09:09)
[2018-02-25] MEDS: Lidocaine 5% Patch TD SCH (09:10)
--- NOTE | 2018-02-25 12:27 | PDOC.PN ---
- Subjective Encounter Start Date: 02/25/18 Encounter Start Time: 12:25 Patient seen and examined, no new issues or complaints, all questions answered. - Objective Resuscitation Status - Order Detail: 02/14/18 01:43 Resuscitation Status Routine Resuscitation Status: FULL: Full Resuscitation Vital Signs & Weight: Vital Signs (12 hours) Temp Pulse Resp BP BP Pulse Ox 02/25/18 11:54 97.8 F 67 16 97/59 L 97 02/25/18 09:08 67 02/25/18 09:06 107/66 02/25/18 07:49 97.5 F L 66 16 86/51 L 98 02/25/18 04:47 98.5 F 65 14 98/50 L 99 Weight Admit Weight 224 lb 3.2 oz Weight 181 lb Most Recent Monitor Data Heart Rate from ECG 87 NIBP 132/75 NIBP BP-Mean 94 Respiration from ECG 23 SpO2 90 I&O: 02/24/18 02/25/18 02/26/18 06:59 06:59 06:59 Intake Total 1200 1140 Output Total 1600 1500 Balance -400 -360 Result Diagrams: 02/24/18 22:52 02/24/18 22:52 Phys Exam - Physical Examination Constitutional: NAD HEENT: PERRLA, moist MMs, sclera anicteric Neck: no nodes, no JVD, supple Respiratory: no wheezing, no rales, no rhonchi Cardiovascular: RRR, no significant murmur, no rub Gastrointestinal: soft, non-tender, no distention, positive bowel sounds hernia Musculoskeletal: pulses present, edema present (trace) Dx/Plan (1) Inguinal hernia Code(s): K40.90 - UNIL INGUINAL HERNIA, W/O OBST OR GANGR, NOT SPCF RECUR Status: Acute (2) Sepsis Code(s): A41.9 - SEPSIS, UNSPECIFIED ORGANISM Status: Acute (3) Systolic congestive heart failure Code(s): I50.20 - UNSPECIFIED SYSTOLIC (CONGESTIVE) HEART FAILURE Status: Acute Comment: EF 10-15%. - Plan * DC lovenox and start eliquis 10mg po BID, patient states he's tried comadin and eliquis in the past at recommended dosage, after long discussion it was agreed to go to eliquis 10mg po BID as the bleeding risk is low and he appears to require a higher dose of anticoagulation medication to have a proper effect. * will monitor for 24 hours more and make sure patient is not having increased bleeding * DC plans in 24-48hrs with eliquis 10mg po BID if patient doesn't have any major bleeding episodes * case and plan d/w patient at length, he understood and agreed with this plan
[2018-02-25] MEDS: Apixaban 5 MG TAB PO SCH (20:52)
[2018-02-25] MEDS: Polyethylene Glycol 3350 17 GM Packet PO SCH (20:53)
[2018-02-26] MEDS: Levothyroxine Sodium 25 MCG TAB PO SCH (05:56)
[2018-02-26 06:14] LABS: #Eosinphils 0.2 thou/uL (0.0-0.7); #Lymphocytes 1.2 thou/uL (1.20-3.40); #Monocytes 0.7 thou/uL (0.11-0.59); #Neutrophils 3.6 thou/uL (1.40-6.50); %Basophils 0.6 % (0.0-1.0); %Lymphocytes 21.7 % (21.0-51.0); %Monocytes 12.4 % (0.0-10.0); %Neutrophils 62.3 % (42.0-75.0); Hemoglobin 10.3 g/dL (14.0-18.0); Mean Corpuscular HGB CONC 31.8 g/dL (32.0-36.0); Mean Corpuscular Hemoglobin 26.2 pg (27.0-31.0); Mean Corpuscular Volume 82.4 fL (78.0-98.0); Mean Platelet Volume 10.9 fL (7.4-10.4); Platelet Count 202 thou/uL (130-400); RBC Distribution Width 15.9 % (11.5-14.5); Red Blood Cell (RBC) Count 3.93 mill/uL (4.70-6.10); White Blood Cell (WBC) Count 5.7 thou/uL (4.8-10.8)
[2018-02-26] MEDS: Clopidogrel Bisulfate 75 MG TAB PO SCH (08:15)
[2018-02-26] MEDS: Apixaban 5 MG TAB PO SCH ×2 (08:16→21:23)
[2018-02-26] MEDS: Aspirin 81 mg Enteric Coated Tablet PO SCH (08:16)
[2018-02-26] MEDS: Potassium Chloride 10 MEQ TAB PO SCH ×2 (08:16→17:47)
[2018-02-26] MEDS: Digoxin 0.125 MG TAB PO SCH (08:16)
[2018-02-26] MEDS: Carvedilol 6.25 MG TAB PO SCH ×2 (08:16→17:47)
[2018-02-26] MEDS: Furosemide 40 MG TAB PO SCH (08:16)
[2018-02-26] MEDS: Allopurinol 300 MG TAB PO SCH (08:16)
[2018-02-26] MEDS: Lidocaine 5% Patch TD SCH (08:17)
--- NOTE | 2018-02-26 11:07 | PDOC.PN ---
- Subjective Encounter Start Date: 02/26/18 Encounter Start Time: 11:05 Patient seen and examined, no new issues or complaints, all questions answered. - Objective Resuscitation Status - Order Detail: 02/14/18 01:43 Resuscitation Status Routine Resuscitation Status: FULL: Full Resuscitation Vital Signs & Weight: Vital Signs (12 hours) Temp Pulse Resp BP BP Pulse Ox 02/26/18 08:16 64 02/26/18 08:11 97.8 F 64 16 89/55 L 98 02/26/18 04:00 97.7 F 69 20 94/60 96 Weight Admit Weight 224 lb 3.2 oz Weight 181 lb 1.6 oz Most Recent Monitor Data Heart Rate from ECG 87 NIBP 132/75 NIBP BP-Mean 94 Respiration from ECG 23 SpO2 90 I&O: 02/25/18 02/26/18 02/27/18 06:59 06:59 06:59 Intake Total 1140 1400 Output Total 1500 1420 Balance -360 -20 Result Diagrams: 02/26/18 05:20 02/24/18 22:52 Phys Exam - Physical Examination Constitutional: NAD HEENT: PERRLA, moist MMs, sclera anicteric Neck: no nodes, no JVD, supple Respiratory: no wheezing, no rales, no rhonchi Cardiovascular: RRR, no significant murmur, no rub Gastrointestinal: soft, non-tender, no distention Musculoskeletal: pulses present, edema present (trace) Dx/Plan (1) Inguinal hernia Code(s): K40.90 - UNIL INGUINAL HERNIA, W/O OBST OR GANGR, NOT SPCF RECUR Status: Acute (2) Sepsis Code(s): A41.9 - SEPSIS, UNSPECIFIED ORGANISM Status: Acute (3) Systolic congestive heart failure Code(s): I50.20 - UNSPECIFIED SYSTOLIC (CONGESTIVE) HEART FAILURE Status: Acute Comment: EF 10-15%. - Plan * If no bleeding by AM he can be discharged with eliquis 10mg po BID, the patient states that he was on this in the past and that he was on 5mg po BID and was switched to warfarin as he had developed a blood clot * For now, after lengthy discussion yesterday, it was decided ot put him on eliquis 10mg po BId and montior 24hrs for any bleeding. If the patient does not have any in Am he can be safely [facility] where the MD in charge over there will need to take over care and management * continue current plan of care otherwise with no changes * case and plan d/w patient a khoi, he understood and agreed with this carter.
[2018-02-26] MEDS: Lisinopril 2.5 MG TAB PO SCH (11:31)
[2018-02-26] MEDS: Polyethylene Glycol 3350 17 GM Packet PO SCH (21:24)
[2018-02-26 23:18] LABS: Calc. Creatinine Clearance 134 mL/min (70-130); Estimated GFR-MDRD Greater than 90
[2018-02-27] MEDS: Levothyroxine Sodium 25 MCG TAB PO SCH (06:03)
[2018-02-27 06:09] LABS: #Eosinphils 0.1 thou/uL (0.0-0.7); #Lymphocytes 1.4 thou/uL (1.20-3.40); #Monocytes 0.5 thou/uL (0.11-0.59); #Neutrophils 2.9 thou/uL (1.40-6.50); %Basophils 0.7 % (0.0-1.0); %Eosinophils 2.7 % (0.0-10.0); %Lymphocytes 27.9 % (21.0-51.0); %Monocytes 9.4 % (0.0-10.0); %Neutrophils 59.5 % (42.0-75.0); Hemoglobin 10.5 g/dL (14.0-18.0); Mean Corpuscular HGB CONC 31.5 g/dL (32.0-36.0); Mean Corpuscular Volume 82.6 fL (78.0-98.0); Mean Platelet Volume 9.4 fL (7.4-10.4); Platelet Count 193 thou/uL (130-400); RBC Distribution Width 15.8 % (11.5-14.5); Red Blood Cell (RBC) Count 4.05 mill/uL (4.70-6.10); White Blood Cell (WBC) Count 4.8 thou/uL (4.8-10.8)
[2018-02-27 06:11] LABS: INR-International Normal Ratio 1.7; PTT 45.2 SEC (22.9-36.1); Prothrombin Time 20.3 SEC (12.0-14.7)
[2018-02-27] MEDS: Potassium Chloride 10 MEQ TAB PO SCH (09:53)
[2018-02-27] MEDS: Digoxin 0.125 MG TAB PO SCH (09:54)
[2018-02-27] MEDS: Allopurinol 300 MG TAB PO SCH (09:54)
[2018-02-27] MEDS: Aspirin 81 mg Enteric Coated Tablet PO SCH (09:54)
[2018-02-27] MEDS: Clopidogrel Bisulfate 75 MG TAB PO SCH (09:55)
[2018-02-27] MEDS: Lisinopril 2.5 MG TAB PO SCH (09:55)
[2018-02-27] MEDS: Furosemide 40 MG TAB PO SCH (09:55)
[2018-02-27] MEDS: Lidocaine 5% Patch TD SCH (09:55)
[2018-02-27] MEDS: Carvedilol 6.25 MG TAB PO SCH (09:55)
[2018-02-27] MEDS: Apixaban 5 MG TAB PO SCH (10:09)
--- NOTE | 2018-02-27 11:09 | PQF ---
DATE: 02-27-18 ATTN: DR. HOMA CUEVAS Please exercise your independent, professional judgment in responding to the clarification form. Clinical indicators are provided on the bottom of this form for your review Diagnosis: ACUTE SEPSIS Present on Admission (POA): [ x ] Yes [ ] No [ ] Unable to determine Coding guidelines require hospitals to identify whether a diagnosis was present on admission (POA) or not. To accurately assign the appropriate POA indicator, this information must be clearly documented within the medical record. CLINICAL INDICATORS - SIGNS / SYMPTOMS / LABS WBC: 02-13-18: 24.5 02-14-18: 21.9 02-15-18: 20.6 02-18-18: 10.4 02-19-18: 12.8 02-22-18: 13.7 BANDS: 02-13-18: 28 02-14-18: 38 02-15-18: 40 02-18-18: 19 BP: ER: 98/71, 93/65 H&P: INCARCERATED RIGHT INGUINAL HERNIA, LEUKOCYTOSIS WITH LEFT SHIFT. I AM GOING TO GO AND COVER HIM WITH SOME ANTIBIOTICS GIVEN SHARYN HE HAS ALSO FELT SOME SUBJECTIVE FEVER. THE INCARCERATED HERNIA WOULD BE THE PRIMARY SOURCE OF CONCERN HERE. PN 02-14-18 DR. CUEVAS : ACUTE SEPSIS RISK FACTORS: H&P: HX OF [place], ISCHEMIC CARDIOMYOPATHY, CHF, HYPERLIPIDEMIA, GOUT, HYPOTHYROIDISM, HTN TREATMENT: H&P: LEUKOCYTOSIS WITH LEFT SHIFT. I AM GOING TO GO AND COVER HIM WITH SOME ANTIBIOTICS GIVEN THAT HE HAS ALSO FELT SOME SUBJECTIVE FEVER. ER: ROCEPHIN IV, NORMAL SALINE (This form is maintained as a part of the permanent medical record) 2014 [employer]. All Rights Reserved [email or web address] Office: [phone] [facility] CENTERShirin
[2018-02-27 11:21] VITALS: BP 95/60; TEMP 98
--- NOTE | 2018-02-27 12:05 | PDOC.EVN ---
Event Note - Event Note Event Note: DC SUMMARY #[id number]
--- NOTE | 2018-02-27 14:06 | DIS ---
DATE OF ADMISSION: 02/13/2018 DATE OF DISCHARGE: 02/27/2018 ADMITTING DIAGNOSES: Abdominal hernia, abdominal pain, nausea, congestive heart failure, hypertension, as well as history of deep venous thrombosis. HOSPITAL COURSE: This is a 37-year-old male, who was admitted to the hospital because of abdominal hernia, was found to have a significant hernia which was open with bowel coming in and out of the hernia. The patient was also found to have significant heart failure with an EF that was depressed. Ejection fraction was noted to be 10% to 15%. The patient was advised to follow up with [facility] for management care of the hernia. He had been seen there in the past. The patient did have a rapid response code being called and was stabilized. The patient given eliquis 10mg po BID in the hospital as he had failed 5mg in the past. After information was received that [facility] does not carry eliquis, the patient was switched to warfarin and discharged. Patient to have INR check in AM and then per protocol to acheive INR 2-3. Case and plan discussed with the patient at length. He was asymptomatic, stable, and ready to go out of the hospital at the point of time of discharge. DISPOSITION: TTC. MEDICATIONS: See MAR. ACTIVITY: As tolerated with assistance as needed. DIET: Low-fat, low-calorie, high-fiber diet. CONDITION: Stable. PROGNOSIS: Guarded. Case and plan discussed with the patient at length. He understood and agreed with this plan. Job ID: [id number] [id number]
== END 2018-02-27 15:38 | DRG 871 ==
LOC: ERS 18:39 → SJJU 22:50 → 2SE 02-14 05:15 → CCU 02-14 10:51 → 2NO 02-15 20:16
PROVIDERS: ADMIT Internal Medicine; ATTEND Internal Medicine
PROC: 30233K1 Transfusion of Nonautologous Frozen Plasma into Peripheral Vein, Percutaneous Approach (ICD-10-PCS; principal; 2018-02-13)
DX: A41.9 Sepsis, unspecified organism (principal); I50.23 Acute on chronic systolic (congestive) heart failure; N17.0 Acute kidney failure with tubular necrosis; I26.99 Other pulmonary embolism without acute cor pulmonale; K40.30 Unilateral inguinal hernia, with obstruction, without gangrene, not specified as recurrent; I13.0 Hypertensive heart and chronic kidney disease with heart failure and stage 1 through stage 4 chronic kidney disease, or unspecified chronic kidney disease; I25.5 Ischemic cardiomyopathy; R63.1 Polydipsia; E78.5 Hyperlipidemia, unspecified; M10.9 Gout, unspecified; E03.9 Hypothyroidism, unspecified; I25.10 Atherosclerotic heart disease of native coronary artery without angina pectoris; D72.829 Elevated white blood cell count, unspecified; N18.3 Chronic kidney disease, stage 3 (moderate); Z79.82 Long term (current) use of aspirin; Z79.02 Long term (current) use of antithrombotics/antiplatelets; Z79.01 Long term (current) use of anticoagulants; Z88.0 Allergy status to penicillin; I25.2 Old myocardial infarction; Z87.891 Personal history of nicotine dependence; Z95.810 Presence of automatic (implantable) cardiac defibrillator
CPT/HCPCS: 36415; 36416; 36430; 71045; 74018; 74177; 76705; 76770; 80048; 80053; 80061; 80074; 80076; 80202; 81003; 81015; 82553; 82565; 82570; 83010; 83605; 83615; 83735; 83880; 84156; 84443; 84484; 85014; 85018; 85025; 85049; 85610; 85730; 86850; 86900; 86901; 87040; 87077; 87086; 87186; 93005; 93010; 93306; 93798; 96361; 96365; 96375; C9132; G8978-GP-CK; G8979-GP-CI; G8987-GO-CJ; G8988-GO-CI; J0696; J1160; J1250; J1265; J1650; J1940; J1956; J2060; J2185; J2270; J2310; J3010; J3370; J3430; J7050; P9047; P9059